=== PATIENT | female | born 1950 | race Caucasian/White ===

== ENCOUNTER → 2018-04-13 13:45 | Outpatient (CLI) | payer MEDICARE, SELFPAY ==
[2018-04-13 16:03] LABS: ALB/GLOB Ratio 0.9 RATIO (0.9-2.4); AST(SGOT) 19 U/L (15-37); Alanine Aminotransfer ALT/SGPT 22 U/L (13-56); Albumin, Serum 3.5 g/dL (3.2-5.0); Alkaline Phosphatase 92 U/L (45-117); Anion Gap 8 (5-15); BUN 13 mg/dL (7-18); BUN/Creat Ratio 15.5 RATIO (10-20); Calcium,Total 8.9 mg/dL (8.5-10.1); Chloride 106 mmol/L (98-107); Creatinine, Serum 0.84 mg/dL (0.55-1.02); EST Glomerular Filtration Rate 72 mL/min (>60); Est Glom Filt Rate - Afr Amer 87 mL/min (>60); Globulin 3.9 g/dL (2.2-4.2); Glucose 87 mg/dL (74-106); Potassium 3.7 mmol/L (3.5-5.1); Protein, Total 7.4 g/dL (6.4-8.2); Sodium Level 143 mmol/L (136-145); Thyroid Stim Hormone (TSH) 1.12 uIU/mL (0.358-3.74)
[2018-04-14 08:58] LABS: Vitamin D,25 Hydroxy 24.7 ng/mL (29.95-100.01)
== END ==
PROVIDERS: Family Provider Family Medicine; PCP Family Medicine; Visit Provider Internal Medicine Endocrinology, Diabetes & Metabolism
DX: E03.8 Other specified hypothyroidism (principal); E55.9 Vitamin D deficiency, unspecified
CPT/HCPCS: 36415; 80053; 82306; 84443

== ENCOUNTER → 2018-10-22 14:26 | Outpatient (CLI) | payer MEDICARE, SELFPAY ==
[2018-10-22 15:47] LABS: Vitamin D,25 Hydroxy 27.5 ng/mL (29.95-100.01)
[2018-10-22 15:49] LABS: ALB/GLOB Ratio 0.9 RATIO (0.9-2.4); AST(SGOT) 15 U/L (15-37); Alanine Aminotransfer ALT/SGPT 18 U/L (13-56); Albumin, Serum 3.6 g/dL (3.2-5.0); Alkaline Phosphatase 94 U/L (45-117); Anion Gap 5 (5-15); BUN 19 mg/dL (7-18); BUN/Creat Ratio 16.7 RATIO (10-20); Calcium,Total 9.1 mg/dL (8.5-10.1); Chloride 105 mmol/L (98-107); Creatinine, Serum 1.14 mg/dL (0.55-1.02); EST Glomerular Filtration Rate 51 mL/min (>60); Est Glom Filt Rate - Afr Amer 61 mL/min (>60); Globulin 4.1 g/dL (2.2-4.2); Glucose 90 mg/dL (74-106); Potassium 3.8 mmol/L (3.5-5.1); Protein, Total 7.7 g/dL (6.4-8.2); Sodium Level 140 mmol/L (136-145); Thyroid Stim Hormone (TSH) 2.31 uIU/mL (0.358-3.74)
== END ==
PROVIDERS: Family Provider Family Medicine; PCP Family Medicine; Referring Provider Internal Medicine Endocrinology, Diabetes & Metabolism; Visit Provider Internal Medicine Endocrinology, Diabetes & Metabolism
DX: E03.8 Other specified hypothyroidism (principal); E55.9 Vitamin D deficiency, unspecified
CPT/HCPCS: 36415; 80053; 82306; 84443

== ENCOUNTER → 2018-11-25 11:26 | Outpatient (CLI) | payer MEDICARE, SELFPAY ==
[2018-11-25 14:17] LABS: Anion Gap 11 (5-15); BUN 20 mg/dL (7-18); BUN/Creat Ratio 21.7 RATIO (10-20); Calcium,Total 9.1 mg/dL (8.5-10.1); Chloride 107 mmol/L (98-107); Creatinine, Serum 0.92 mg/dL (0.55-1.02); EST Glomerular Filtration Rate 65 mL/min (>60); Est Glom Filt Rate - Afr Amer 78 mL/min (>60); Glucose 121 mg/dL (74-106); Potassium 3.7 mmol/L (3.5-5.1); Sodium Level 143 mmol/L (136-145)
== END ==
PROVIDERS: Family Provider Family Medicine; PCP Family Medicine; Referring Provider Internal Medicine Endocrinology, Diabetes & Metabolism; Visit Provider Internal Medicine Endocrinology, Diabetes & Metabolism
DX: E03.8 Other specified hypothyroidism (principal); E55.9 Vitamin D deficiency, unspecified
CPT/HCPCS: 36415; 80048

== ENCOUNTER → 2018-12-13 13:55 | Outpatient (CLI) | payer MEDICARE, SELFPAY | PROVIDERS: Family Provider Family Medicine; PCP Family Medicine; Referring Provider Family Medicine; Visit Provider Family Medicine | DX: M54.5 Low back pain (principal) | CPT/HCPCS: 87086; 87088 ==

== ENCOUNTER → 2019-04-19 08:17 | Outpatient (CLI) | payer MEDICARE, SELFPAY ==
[2019-04-19 10:26] LABS: Vitamin D,25 Hydroxy 33.2 ng/mL (29.95-100.01)
[2019-04-19 10:30] LABS: AST(SGOT) 15 U/L (15-37); Alanine Aminotransfer ALT/SGPT 22 U/L (13-56); Albumin, Serum 3.6 g/dL (3.2-5.0); Alkaline Phosphatase 75 U/L (45-117); Anion Gap 8 (5-15); BUN 20 mg/dL (7-18); BUN/Creat Ratio 21.8 RATIO (10-20); Calcium,Total 8.9 mg/dL (8.5-10.1); Chloride 108 mmol/L (98-107); Creatinine, Serum 0.92 mg/dL (0.55-1.02); EST Glomerular Filtration Rate 65 mL/min (>60); Est Glom Filt Rate - Afr Amer 78 mL/min (>60); Globulin 3.6 g/dL (2.2-4.2); Glucose 110 mg/dL (74-106); Potassium 3.8 mmol/L (3.5-5.1); Protein, Total 7.2 g/dL (6.4-8.2); Sodium Level 142 mmol/L (136-145)
== END ==
PROVIDERS: Family Provider Family Medicine; PCP Family Medicine; Referring Provider Internal Medicine Endocrinology, Diabetes & Metabolism; Visit Provider Internal Medicine Endocrinology, Diabetes & Metabolism
DX: E03.8 Other specified hypothyroidism (principal); E55.9 Vitamin D deficiency, unspecified
CPT/HCPCS: 36415; 80053; 82306; 84443

== ENCOUNTER → 2019-10-21 11:17 | Outpatient (CLI) | payer MEDICARE, SELFPAY ==
[2019-10-21 14:30] LABS: ALB/GLOB Ratio 0.9 RATIO (0.9-2.4); AST(SGOT) 16 U/L (15-37); Alanine Aminotransfer ALT/SGPT 25 U/L (13-56); Albumin, Serum 3.5 g/dL (3.2-5.0); Alkaline Phosphatase 79 U/L (45-117); Anion Gap 4 (5-15); BUN 19 mg/dL (7-18); BUN/Creat Ratio 20.7 RATIO (10-20); Calcium,Total 9.3 mg/dL (8.5-10.1); Chloride 107 mmol/L (98-107); Creatinine, Serum 0.92 mg/dL (0.55-1.02); EST Glomerular Filtration Rate 65 mL/min (>60); Est Glom Filt Rate - Afr Amer 78 mL/min (>60); Globulin 3.8 g/dL (2.2-4.2); Glucose 80 mg/dL (74-106); Potassium 3.9 mmol/L (3.5-5.1); Protein, Total 7.3 g/dL (6.4-8.2); Sodium Level 142 mmol/L (136-145); Thyroid Stim Hormone (TSH) 4.17 uIU/mL (0.358-3.74)
== END ==
LOC: MTLAB 11:19
PROVIDERS: PCP Family Medicine; Referring Provider Internal Medicine Endocrinology, Diabetes & Metabolism; Visit Provider Internal Medicine Endocrinology, Diabetes & Metabolism
DX: E03.8 Other specified hypothyroidism (principal)
CPT/HCPCS: 36415; 80053; 84443

== ENCOUNTER → 2020-04-19 | Outpatient (CLI) | payer MEDICARE, SELFPAY ==
[2020-04-19 10:18] LABS: ALB/GLOB Ratio 1.1 RATIO (0.9-2.4); AST(SGOT) 15 U/L (15-37); Alanine Aminotransfer ALT/SGPT 22 U/L (13-56); Albumin, Serum 3.7 g/dL (3.2-5.0); Alkaline Phosphatase 84 U/L (45-117); Anion Gap 3 (5-15); BUN 13 mg/dL (7-18); BUN/Creat Ratio 14.2 RATIO (10-20); Calcium,Total 8.9 mg/dL (8.5-10.1); Chloride 106 mmol/L (98-107); Creatinine, Serum 0.92 mg/dL (0.55-1.02); EST Glomerular Filtration Rate 65 mL/min (>60); Est Glom Filt Rate - Afr Amer 78 mL/min (>60); Globulin 3.5 g/dL (2.2-4.2); Glucose 95 mg/dL (74-106); Potassium 4.2 mmol/L (3.5-5.1); Protein, Total 7.2 g/dL (6.4-8.2); Sodium Level 139 mmol/L (136-145); Thyroid Stim Hormone (TSH) 1.89 uIU/mL (0.358-3.74)
== END | disposition home or self-care (01) ==
LOC: MTLAB 08:43
PROVIDERS: PCP Family Medicine; Referring Provider Internal Medicine Endocrinology, Diabetes & Metabolism; Visit Provider Internal Medicine Endocrinology, Diabetes & Metabolism
DX: E03.8 Other specified hypothyroidism (principal)
CPT/HCPCS: 36415; 80053; 84443

== ENCOUNTER → 2020-11-12 08:34 | Outpatient (CLI) | payer MEDICARE, SELFPAY ==
[2020-11-12 10:07] LABS: Vitamin D,25 Hydroxy 36.4 ng/mL
[2020-11-12 10:36] LABS: ALB/GLOB Ratio 1.1 RATIO (0.9-2.4); AST(SGOT) 18 U/L (15-37); Alanine Aminotransfer ALT/SGPT 22 U/L (13-56); Albumin, Serum 3.8 g/dL (3.2-5.0); Alkaline Phosphatase 85 U/L (45-117); Anion Gap 7 (5-15); BUN 18 mg/dL (7-18); BUN/Creat Ratio 18.5 RATIO (10-20); Calcium,Total 9.7 mg/dL (8.5-10.1); Chloride 107 mmol/L (98-107); Creatinine, Serum 0.97 mg/dL (0.55-1.02); EST Glomerular Filtration Rate 60 mL/min (>60); Est Glom Filt Rate - Afr Amer 73 mL/min (>60); Globulin 3.6 g/dL (2.2-4.2); Glucose 99 mg/dL (74-106); Potassium 3.9 mmol/L (3.5-5.1); Protein, Total 7.4 g/dL (6.4-8.2); Sodium Level 139 mmol/L (136-145); Thyroid Stim Hormone (TSH) 2.48 uIU/mL (0.358-3.74)
== END ==
PROVIDERS: PCP Family Medicine; Referring Provider Internal Medicine Endocrinology, Diabetes & Metabolism; Visit Provider Internal Medicine Endocrinology, Diabetes & Metabolism
DX: E03.8 Other specified hypothyroidism (principal); E55.9 Vitamin D deficiency, unspecified
CPT/HCPCS: 36415; 80053; 82306; 84443

== ENCOUNTER 2021-11-25 13:50 | Outpatient (CLI) | payer MEDICARE, SELFPAY ==
[2021-11-25 16:18] LABS: Free T3 2.6 pg/mL (2.18-3.98); T4 Free Direct 1.22 ng/dL (0.76-1.46); Thyroid Stim Hormone (TSH) 1.32 uIU/mL (0.358-3.74)
== END 2021-11-25 23:59 | disposition home or self-care (01) ==
PROVIDERS: PCP Family Medicine; Referring Provider Family Medicine; Visit Provider Family Medicine
DX: E03.9 Hypothyroidism, unspecified (principal)
CPT/HCPCS: 36415; 84439; 84443; 84481

== ENCOUNTER → 2022-09-04 | Outpatient (CLI) | payer MEDICARE, SELFPAY ==
[2022-09-04 17:40] LABS: Hematocrit 40.9 % (37-47); Hemoglobin 13.5 g/dL (12.0-15.0); Mean Corpuscular Hgb 30.3 pg (27.0-32.0); Mean Corpuscular Volume 91.7 fL (81-99); Mean Platelet Vol. 9.3 fl (6.2-12.0); Platelet Count 239 K/mm3 (150-450); RBC Distribution Width CV 12.7 % (11.6-14.6); RBC Distribution Width SD 43.1 fl (35.1-43.9); Red Blood Count 4.46 M/mm3 (4.2-5.4); White Blood Count 5.3 K/mm3 (4.4-11.0)
[2022-09-04 18:04] LABS: Anion Gap 7 (5-15); BUN 17 mg/dL (7-18); BUN/Creat Ratio 22.3 RATIO (10-20); Calcium,Total 9.4 mg/dL (8.5-10.1); Chloride 105 mmol/L (98-107); Creatinine, Serum 0.76 mg/dL (0.55-1.02); EST Glomerular Filtration Rate 80 mL/min (>60); Est Glom Filt Rate - Afr Amer 96 mL/min (>60); Free T3 2.6 pg/mL (2.18-3.98); Glucose 104 mg/dL (74-106); Sodium Level 141 mmol/L (136-145); T4 Free Direct 1.13 ng/dL (0.76-1.46); Thyroid Stim Hormone (TSH) 1.06 uIU/mL (0.358-3.74)
== END | disposition home or self-care (01) ==
LOC: MTLAB 15:03
PROVIDERS: PCP Family Medicine; Referring Provider Family Medicine; Visit Provider Family Medicine
DX: I10 Essential (primary) hypertension (principal); E03.9 Hypothyroidism, unspecified
CPT/HCPCS: 36415; 80048; 84439; 84443; 84481; 85027

== ENCOUNTER → 2023-03-10 | Outpatient (CLI) | payer MEDICARE, SELFPAY ==
[2023-03-10 12:47] LABS: T3 Total - Triiodothyronine 0.99 ng/mL (0.6-1.81)
[2023-03-10 12:48] LABS: Anion Gap 1 (5-15); BUN 21 mg/dL (7-18); BUN/Creat Ratio 26.2 RATIO (10-20); Calcium,Total 9.4 mg/dL (8.5-10.1); Chloride 108 mmol/L (98-107); Cholesterol 250 mg/dL (200); EST Glomerular Filtration Rate 75 mL/min (>60); Est Glom Filt Rate - Afr Amer 90 mL/min (>60); Glucose 99 mg/dL (74-106); High Density Lipoprotein 61 mg/dL; Potassium 3.8 mmol/L (3.5-5.1); Sodium Level 141 mmol/L (136-145); T4 Free Direct 1.09 ng/dL (0.76-1.46); Thyroid Stim Hormone (TSH) 5.57 uIU/mL (0.358-3.74); Triglycerides 94 mg/dL; Very Low Density Lipoprotein 19 mg/dL (5-40)
[2023-03-11 14:45] LABS: Free T3 2.3 pg/mL (2.18-3.98)
== END | disposition home or self-care (01) ==
LOC: MTLAB 10:13
PROVIDERS: PCP Family Medicine; Referring Provider Family Medicine; Visit Provider Family Medicine
DX: I10 Essential (primary) hypertension (principal); E03.9 Hypothyroidism, unspecified
CPT/HCPCS: 36415; 80048; 80061; 84439; 84443; 84480; 84481

== ENCOUNTER → 2023-09-08 | Outpatient (CLI) | payer MEDICARE, SELFPAY ==
[2023-09-08 12:48] LABS: ALB/GLOB Ratio 1.1 RATIO (0.9-2.4); AST(SGOT) 20 U/L (15-37); Alanine Aminotransfer ALT/SGPT 28 U/L (13-56); Albumin, Serum 3.7 g/dL (3.2-5.0); Alkaline Phosphatase 67 U/L (45-117); Anion Gap 2 (5-15); BUN 19 mg/dL (7-18); BUN/Creat Ratio 22.3 RATIO (10-20); Calcium,Total 9.3 mg/dL (8.5-10.1); Chloride 106 mmol/L (98-107); Cholesterol 181 mg/dL (200); Creatinine, Serum 0.85 mg/dL (0.55-1.02); EST Glomerular Filtration Rate 70 mL/min (>60); Est Glom Filt Rate - Afr Amer 84 mL/min (>60); Free T3 2.1 pg/mL (2.18-3.98); Globulin 3.4 g/dL (2.2-4.2); Glucose 90 mg/dL (74-106); High Density Lipoprotein 56 mg/dL; Potassium 3.6 mmol/L (3.5-5.1); Protein, Total 7.1 g/dL (6.4-8.2); Sodium Level 139 mmol/L (136-145); T4 Free Direct 1.16 ng/dL (0.76-1.46); Thyroid Stim Hormone (TSH) 1.38 uIU/mL (0.358-3.74); Triglycerides 131 mg/dL; Very Low Density Lipoprotein 26 mg/dL (5-40)
== END | disposition home or self-care (01) ==
LOC: MTLAB 10:51
PROVIDERS: PCP Family Medicine; Referring Provider Family Medicine; Visit Provider Family Medicine
DX: E03.9 Hypothyroidism, unspecified (principal); E78.5 Hyperlipidemia, unspecified
CPT/HCPCS: 36415; 80053; 80061; 84439; 84443; 84481

== ENCOUNTER 2023-12-23 09:00 | Outpatient (RCR) | payer MEDICARE, SELFPAY ==
--- NOTE | 2023-11-23 20:13 | HP.PTEVAL ---
Patient's Visit Information Visit Information Visit Information: JARRET SHERIFF is a 73 year old F referred to Physical Therapy by AARON DEE with a diagnosis of SPONDYLOLISTHESIS OF LUMBAR SPINE. Date of Evaluation: 11/20/23 Physical Therapist: Janette Esposito PT, Cert MDT Visit Plan Frequency: 2x /Week Duration: 4-6 Weeks Plan: Neutral Spine Core Stability Exercises and Kathy LE Hip Flexor, Hamstring and Calf Stretching to help reduce stress to the Lumbar Spine with all Daily Activities. Kathy LE Strengthening. Instruction in Proper Posture Control, Body Mechanics, and Appropriate Activity Modifications. HEP Instruction. Subjective Subjective: Work/Leisure: RETIRED. Disability: NO Present symptoms: KATHY LOW BACK PAIN THAT SOMETIMES GOES INTO HIPS. RARE INTERMITTENT L CALF TINGLING. SOMETIMES CAN NOT MOVE LEGS (MORNING). Present since: LAST SUMMER AND ESPECIALLY SINCE JUL 2023. Pain Scale: WORST 11/10, LEAST 3/10 Currently: 3/10 Is it getting better, worse or staying the same: STAYING THE SAME Commenced as a result of: NO APPARENT REASON. Symptoms at onset: STIFFNESS IN BACK Worse: MORNING, PICKING UP SOMETHING OFF THE FLOOR, STANDING, WALKING, WALKING THE DOG - WHEN THE DOG PULLS, BEING ON FEET, LIFTING THINGS LIKE A CROCK POT. Better: SIT DOWN, NSAIDS. Has been prescribed Meloxicam but patient reports it doesn't help as much as the NSAIDS. Disturbed sleep: YES - TURNING OVER Previous history/Previous treatment: EPISODIC LOW BACK PAIN FOR ABOUT 40 YEARS - SELF TREATED. Treatment this episode: MELOXICAM, PREDNISONE - FINISHING CURRENTLY - I FEEL BETTER. Coughing/sneezing/straining: POSITIVE FOR INCREASED PAIN. Gait: TIME AND DISTANCE LIMITED. NO FALLS. NO AD'S. CAN GO UP AND DOWN STEPS NORMALLY UNLESS TRYING TO CARRY ANYTHING LIKE LAUNDRY. Bowel or Bladder Dysfunction: NORMAL Accidents: NO Unexplained weight loss: NO Imaging: LUMBAR X-RAYS AT [facility] RECENTLY - SLIPPED DISC L45 AND NARROWING THE WHOLE WAY UP PER PATIENT REPORT. PMH/Recent major surgery: KATHY TKR'S. HIGH CHOLESTEROL. Objective Objective: Sitting/Standing Posture: R ILIAC CREST SLIGHTLY HIGHER THAN L AND R SHLD LEVEL LOWER THAN L. ANTERIOR PELVIC TILT. NO RELEVANT LATERAL SHIFT Active Correction of posture: BETTER Other Observations: INDEP GAIT INTO PT WITH INCREASED TRUNK FLEXION AND QUICK STEPS. Sensory deficit: KATHY LE LIGHT TOUCH SENSATION GROSSLY INTACT AND SYMMETRICAL ROM deficit: TIGHT KATHY HIP FLEXORS, HS AND MILD CALF TIGHTNESS. Motor deficit: KATHY HIPS 4-/5, KNEES 5/5, ANKLES 5/5. Dural Signs: NEGATIVE KATHY LE'S. Lumbar mvmt loss: flex - NIL ext - MOD R SG - DONNA L SG - DONNA PATIENT C/O INCREASED LBP WITH LUMBAR ROM TESTING INTO KATHY SG'ING BUT NOT FLEX AND EXT. Core strength: POOR Palpation: INCREASED MUSCLE TONE KATHY LUMBAR PARASPINALS AND LOWER THORACIC REGION L >R. TENDER L345 REGION. Balance/Special Test Scores Oswestry Low Back Score: 21 Goals Goal 1:: DECREASE OF BACK AND KATHY LE SX'S BY AT LEAST 25% TO EASE ADL'S. Goal Time Frame: 4-6 Weeks Goal 2:: IMPROVE BACK OSWESTRY SCORE BY AT LEAST 5 POINTS TO SHOW IMPROVED FUNCTION Goal Time Frame: 4-6 Weeks Goal 3:: PATIENT WILL HAVE INCREASED MUSCLE STRENGTH BY AT LEAST 1/2 GRADE OF ALL INVOLVED MUSCULATURE. Goal Time Frame: 4-6 Weeks Goal 4:: PATIENT WILL HAVE IMPROVE PAINFREE LUMBAR MOBILITY TO EASE ADL'S. Goal Time Frame: 4-6 Weeks Goal 5:: NORMALIZE GAIT Goal Time Frame: 4-6 Weeks Goal 6:: PATIENT WILL BE INDEP WITH A HEP FOR CONTINUED IMPROVEMENT ONCE FORMAL PHYSICAL THERPAY CONCLUDES. Goal Time Frame: 6-8 Weeks Rehabilitation Potential Physical Therapy Diagnosis: THIS PATIENT PRESENTS TO PT WITH C/O LOW BACK AND KATHY HIP PAIN. SHE HAS CORE AND KATHY HIP WEAKNESS, BACK AND KATHY LE STIFFNESS AND ABNORMAL GAIT PATTERN. Rehabilitation Potential: Fair Anticipated Interventions Patient/Client Instruction: Educate patient on: Condition, Plan of Care and Risk Factors For the Purpose of:: To improve self management Therapeutic Exercise to Include: Strength training, Body mechanics, Postural training, Neuromotor development, In an aquatic setting and Dynamic Lumbar Stabilization For the Purpose of:: To decrease pain, To increase ROM, To improve muscle performance and motor function, To increase tolerance to activity/condition/position, To improve ability of physical actions for home/community/work/leisure and To improve gait and locomotor functions Manual Therapy Techniques to Include: Soft tissue mobilization For the Purpose of:: To decrease pain and To improve nutrient delivery to tissue Cryotherapy (ice pack, ice massage): Yes Thermo therapy (hot pack): Yes Ultrasound (thermal/non thermal): Yes For the Purpose of:: To decrease pain, To decrease swelling/inflammation and To improve nutrient delivery to tissue Text: Thank you for the opportunity to evaluate your patient. For Medicare and Medicare HMO plans, please review the plan of care and approve it. It will need to be FAXED BACK to us at [phone] for Medicare purposes. For Medicare only, by signing this I certify the plan of care. Please let me know if there are questions or concerns regarding this plan of care. Physician Signature: Date:
== END 2023-12-23 19:00 | disposition home or self-care (01) ==
LOC: PT 09:00
PROVIDERS: PCP Family Medicine
DX: M43.16 Spondylolisthesis, lumbar region (principal)
CPT/HCPCS: 97035; 97162; 97530

== ENCOUNTER → 2024-03-09 | Outpatient (CLI) | payer MEDICARE, SELFPAY ==
[2024-03-09 11:20] LABS: AST(SGOT) 23 U/L (15-37); Alanine Aminotransfer ALT/SGPT 25 U/L (13-56); Albumin, Serum 3.7 g/dL (3.2-5.0); Alkaline Phosphatase 79 U/L (45-117); Anion Gap 6 (5-15); BUN 19 mg/dL (7-18); BUN/Creat Ratio 24.2 RATIO (10-20); Calcium,Total 9.1 mg/dL (8.5-10.1); Chloride 108 mmol/L (98-107); Cholesterol 191 mg/dL (200); Creatinine, Serum 0.78 mg/dL (0.55-1.02); EST Glomerular Filtration Rate 77 mL/min (>60); Est Glom Filt Rate - Afr Amer 93 mL/min (>60); Free T3 2.6 pg/mL (2.18-3.98); Globulin 3.8 g/dL (2.2-4.2); Glucose 100 mg/dL (74-106); High Density Lipoprotein 57 mg/dL; Potassium 3.8 mmol/L (3.5-5.1); Protein, Total 7.5 g/dL (6.4-8.2); Sodium Level 141 mmol/L (136-145); T4 Free Direct 1.12 ng/dL (0.76-1.46); Thyroid Stim Hormone (TSH) 3.22 uIU/mL (0.358-3.74); Triglycerides 171 mg/dL; Very Low Density Lipoprotein 34 mg/dL (5-40)
== END | disposition home or self-care (01) ==
PROVIDERS: PCP Family Medicine; Referring Provider Family Medicine; Visit Provider Family Medicine
DX: E03.9 Hypothyroidism, unspecified (principal)
CPT/HCPCS: 36415; 80053; 80061; 84439; 84443; 84481

== ENCOUNTER → 2024-09-14 | Outpatient (CLI) | payer MEDICARE, SELFPAY ==
[2024-09-14 18:36] LABS: Anion Gap 6 (5-15); BUN 19 mg/dL (7-18); BUN/Creat Ratio 21.8 RATIO (10-20); Chloride 106 mmol/L (98-107); Cholesterol 194 mg/dL (200); Creatinine, Serum 0.87 mg/dL (0.55-1.02); EST Glomerular Filtration Rate 68 mL/min (>60); Est Glom Filt Rate - Afr Amer 82 mL/min (>60); Free T3 2.2 pg/mL (2.18-3.98); Glucose 91 mg/dL (74-106); High Density Lipoprotein 60 mg/dL; Sodium Level 139 mmol/L (136-145); Triglycerides 159 mg/dL; Very Low Density Lipoprotein 32 mg/dL (5-40)
== END | disposition home or self-care (01) ==
LOC: MFPLAB 14:16
PROVIDERS: PCP Family Medicine; Referring Provider Family Medicine; Visit Provider Family Medicine
DX: E03.9 Hypothyroidism, unspecified (principal); E78.5 Hyperlipidemia, unspecified
CPT/HCPCS: 36415; 80048; 80061; 84439; 84443; 84481

== ENCOUNTER → 2025-03-20 | Outpatient (CLI) | payer MEDICARE, SELFPAY ==
[2025-03-20 14:04] LABS: ALB/GLOB Ratio 1.4 RATIO (0.9-2.4); AST(SGOT) 26 U/L (<=31); Alanine Aminotransfer ALT/SGPT 17 U/L (<=34); Albumin, Serum 4.1 g/dL (3.4-4.8); Alkaline Phosphatase 65 U/L (35-104); Anion Gap 12 (5-15); BUN 22 mg/dL (4-19); BUN/Creat Ratio 21.5 RATIO (10-20); Calcium,Total 9.4 mg/dL (7.6-11.0); Carbon Dioxide 24.3 mmol/L (21.0-32.0); Chloride 101 mmol/L (98-108); Cholesterol 223 mg/dL (<=200); Creatinine, Serum 1.04 mg/dL (0.70-1.20); EST Glomerular Filtration Rate 57 (>60); Free T3 2.6 pg/mL (2.18-3.98); Globulin 2.9 g/dL (2.2-4.2); Glucose 98 mg/dL (70-99); High Density Lipoprotein 53 mg/dL; Low Density Lipoprotein Calc. 127 mg/dL; Potassium 4.2 mmol/L (3.3-5.1); Sodium Level 138 mmol/L (133-145); Total Bilirubin 0.38 mg/dL (0.00-1.30); Triglycerides 214 mg/dL; Very Low Density Lipoprotein 43 mg/dL (5-40); cholesterol:hdl ratio screen 4.22
== END | disposition home or self-care (01) ==
LOC: MFPLAB 10:32
PROVIDERS: PCP Family Medicine; Visit Provider Family Medicine
DX: E03.9 Hypothyroidism, unspecified (principal); E78.5 Hyperlipidemia, unspecified
CPT/HCPCS: 36415; 80053; 80061; 84439; 84443; 84481

== ENCOUNTER → 2025-04-07 | Outpatient (CLI) | payer MEDICARE, SELFPAY ==
--- NOTE | 2025-04-07 14:38 | BI_ITS ---
EXAM: SCRN MAMM (CAD)W/SISI BILAT DATE: 04/07/2025 CLINICAL HISTORY: F, Age 74 y/o , ANNUAL SCREENING TECHNIQUE: SCRN MAMM (CAD)W/SISI BILAT COMPARISON: None available FINDINGS: TISSUE DENSITY: The breasts are heterogeneously dense, which may obscure small masses. Bilateral Breast Mammographic Findings: Right breast: There is questionable architectural distortion in the slightly outer right breast mid depth on the right CC view. Left breast: No suspicious masses, calcifications or other abnormalities are identified. BI/SCRN MAMM (CAD)W/SISI BILAT IMPRESSION: Additional diagnostic imaging is recommended of the right breast with diagnosti c right breast mammogram and possible ultrasound. No mammographic evidence of malignancy in the left breast OVERALL FINAL ASSESSMENT BI-RADS 0: INCOMPLETE - NEED ADDITIONAL IMAGING EVALUATION. RECOMMENDATION: Additional Views obtained/call backs A letter with findings and recommendations will be mailed to the patient. Reading Location: [id number]
== END | disposition home or self-care (01) ==
LOC: OPBI 14:35
PROVIDERS: PCP Family Medicine; Referring Provider Family Medicine; Visit Provider Family Medicine
DX: Z12.31 Encounter for screening mammogram for malignant neoplasm of breast (principal)
CPT/HCPCS: 77063; 77067

== ENCOUNTER → 2025-04-21 | Outpatient (CLI) | payer MEDICARE, SELFPAY ==
--- NOTE | 2025-04-21 12:57 | US_ITS ---
EXAM: DIAG MAMM W/CAD, UNILAT; RT BRST UNILAT SISI ADD-ON; BREAST LIMITED UNILATERAL 04/21/2025 CLINICAL HISTORY: 74-year-old female presents for follow-up of the right breast findings seen on examination of 04/07/2025. No family history of breast cancer. TECHNIQUE: DIAG MAMM W/CAD, UNILAT; RT BRST UNILAT SISI ADD-ON; BREAST LIMITED UNILATERAL. COMPARISON: Prior exam(s) dated 04/07/2025. FINDINGS: MAMMOGRAM: TISSUE DENSITY: The breasts are heterogeneously dense, which may obscure small masses. Unilateral Right Breast Mammographic Findings: 1. Follow-up examination performed for the questionable architectural distortions in the right breast seen on examination of 04/07/2025. On the present examination, there is an focal asymmetry in the upper-outer right breast at middle depth. ULTRASOUND: 1. There is no definite sonographic correlate. 2. There is an incidental cyst cluster in the right breast at 8 o'clock 4 cm from the nipple measuring 1.0 x 0.7 x 0.3 cm. Also, there is entrapped fa/fat lobule t at 10 o'clock 5 cm from the nipple. US/Breast Limited Unilateral IMPRESSION: 1. The focal asymmetry in the upper-outer right breast is probably benign. Re commended short interval diagnostic mammogram in six-months for further evaluation. 2. The cyst cluster in the right breast at 8 o'clock is probably benign. Daniel mmend short interval diagnostic ultrasound in six-months for further evaluation. OVERALL FINAL ASSESSMENT BI-RADS 3: PROBABLY BENIGN. RECOMMENDATION: 6 Month Follow-up A letter with findings and recommendations will be mailed to the patient. Reading Location: [id number]
--- NOTE | 2025-04-21 13:06 | BI_ITS ---
EXAM: DIAG MAMM W/CAD, UNILAT; RT BRST UNILAT SISI ADD-ON; BREAST LIMITED UNILATERAL 04/21/2025 CLINICAL HISTORY: 74-year-old female presents for follow-up of the right breast findings seen on examination of 04/07/2025. No family history of breast cancer. TECHNIQUE: DIAG MAMM W/CAD, UNILAT; RT BRST UNILAT SISI ADD-ON; BREAST LIMITED UNILATERAL. COMPARISON: Prior exam(s) dated 04/07/2025. FINDINGS: MAMMOGRAM: TISSUE DENSITY: The breasts are heterogeneously dense, which may obscure small masses. Unilateral Right Breast Mammographic Findings: 1. Follow-up examination performed for the questionable architectural distortions in the right breast seen on examination of 04/07/2025. On the present examination, there is an focal asymmetry in the upper-outer right breast at middle depth. ULTRASOUND: 1. There is no definite sonographic correlate. 2. There is an incidental cyst cluster in the right breast at 8 o'clock 4 cm from the nipple measuring 1.0 x 0.7 x 0.3 cm. Also, there is entrapped fa/fat lobule t at 10 o'clock 5 cm from the nipple. BI/Rt Brst Unilat Sisi Add-On IMPRESSION: 1. The focal asymmetry in the upper-outer right breast is probably benign. Re commended short interval diagnostic mammogram in six-months for further evaluation. 2. The cyst cluster in the right breast at 8 o'clock is probably benign. Daniel mmend short interval diagnostic ultrasound in six-months for further evaluation. OVERALL FINAL ASSESSMENT BI-RADS 3: PROBABLY BENIGN. RECOMMENDATION: 6 Month Follow-up A letter with findings and recommendations will be mailed to the patient. Reading Location: [id number]
== END | disposition home or self-care (01) ==
LOC: OPBI 12:47
PROVIDERS: PCP Family Medicine; Referring Provider Family Medicine; Visit Provider Family Medicine
DX: N60.01 Solitary cyst of right breast (principal); R92.30 Dense breasts, unspecified
CPT/HCPCS: 76642; 77061; 77065; G0279

== ENCOUNTER 2025-08-09 06:04 | Day surgery (SDC) | payer MEDICARE, SELFPAY ==
[2025-08-09] VITALS (7 sets, daily range): BP systolic 112–154; BP diastolic 54–89; PULSE 72–97; RESP 16; TEMP 36.2–36.3; O2SAT 99–100; BMI 30.9
--- OUTSIDE RECORDS SUMMARY | 2025-08-09 06:10 | XMS RPT_ITS | CCD ---
Author Organization [place] Inform ion [facility] Care Team Providers Care Client Service Executive Name Role Phone Jamila NEWBY, Dr. Nichols Primary Care Provider Jamila NEWBY, Dr. Nichols Attending Provider Jamila NEWBY, Dr. Nichols Referring Provider [phone] Simone Marino Referring Unavailable Marino, Simone Primary Care Unavailable Marino, Simone Attending Unavailable Marino, Simone Referring Unavailable Marino, Simone Primary Care Unavailable Marino, Simone Attending Unavailable Marino, Simone Primary Care Unavailable RobotLeonie valles Attending Unavailable Marino, Simone Referring Unavailable Marino, Simone Primary Care Unavailable Marino, Simone Attending Unavailable Marino, Simone Referring Unavailable Marino, Simone Primary Care Unavailable Marino, Simone Attending Unavailable Allergies Allergy Classification Reported Allergen(s) Allergy Type Date of Onset Reaction(s) Facility (5 sources) nickel Drug Allergy 05-24-2021 ears swell [facility] (5 sources) Penicillins Allergy to substance 05-24-2021 [facility] (1 source) nickel Drug Allergy 08-07-2025 [facility] Repository (1 source) Penicillins Drug allergy (disorder) 08-07-2025 [facility] Repository Medications Current Medications Medication Drug Class(es) Dates Sig (Normalized) Sig (Original) allergy injections (5 sources) Start: 02-12-2021 allergy injections Active IM every 2 weeks 0 February 12, 2021 12:00am Start: 02-12-2021 allergy inject ions Active IM every 2 weeks February 11, 2021 11:00pm Start: 02-12-2021 allergy inject ions Active IM every 2 weeks February 12, 2021 12:00am biotin 1 mg oral capsule (5 sources) Start: 02-12-2021 take 1 capsule by mouth once daily Biotin 1 mg capsule Active 1 mg PO DAILY February 12, 2021 12:00am cholecalciferol 0.05 mg oral capsule (5 sources) Vitamin D Start: 02-12-2021 take 1 capsule by mouth once daily Cholecalciferol (Vitamin D3) 50 mcg (2,000 unit) capsule Active 50 ug PO DAILY February 12, 2021 12:00am cimetidine 200 mg oral tablet (5 sources) Histamine-2 Receptor Antagonist Start: 02-12-2021 take 1 tablet by mouth once daily Cimetidine 200 mg tablet Active 200 mg PO DAILY February 12, 2021 12:00am DULoxetine 60 mg delayed release oral capsule (5 sources) Serotonin and Norepinephrine Reuptake Inhibitor Start: 02-12-2021 take 1 capsule by mouth once daily Duloxetine 60 mg capsule,delayed release(DR/EC) Active 60 mg PO DAILY February 12, 2021 12:00am fexofenadine hydrochloride 180 mg oral tablet (5 sources) Histamine-1 Receptor Antagonist Start: 02-12-2021 take 1 tablet by mouth once daily as needed Fexofenadine (Brigitte Allergy) 180 mg tablet Active 180 mg PO DAILY as needed February 12, 2021 12:00am lactobacillus combination no.8 (Adult Probiotic) (5 sources) Start: 02-12-2021 lactobacillus combination no.8 (Adult Probiotic) Active PO DAILY February 11, 2021 11:00pm Start: 02-12-2021 lactobacillus combination no.8 (Adult Probiotic) Active PO DAILY February 12, 2021 12:00am levothyroxine sodium 0.1 mg oral tablet (10 sources) l-Thyroxine Start: 05-24-2021 take 1 tablet by mouth once daily Levothyroxine 100 mcg tablet Active 100 ug PO DAILY May 24, 2021 12:00am Start: 02-12-2021 End: 05-24-2021 take 1 capsule by mouth once daily Levothyroxine 100 mcg capsule Discontinued 100 ug PO DAILY February 12, 2021 12:00am May 24, 2021 1:46pm Multivitamin preparation (2 sources) Start: 02-12-2021 take 1 tablet by mouth once daily Multivitamin Active 1 TABLET PO DAILY February 11, 2021 11:00pm Start: 02-12-2021 take 1 tablet by steven once daily Multivitamin Active 1 TABLET PO DAILY February 12, 2021 12:00am Multivitamin tablet (3 sources) Start: 02-12-2021 Multivitamin t ablet Active 1 {tbl} PO DAILY February 12, 2021 12:00am [place]-3 Fatty Acids (2 sources) Start: 02-12-2021 take 1000 mg by mouth once daily [place]-3 Fatty Acids Active 1000 MG PO DAILY February 11, 2021 11:00pm "intermittent" per patient Start: 02-12-2021 take 1000 mg by mout h once daily [place]-3 Fatty Acids Active 1000 MG PO DAILY February 12, 2021 12:00am "intermittent" per patient [place]-3 Fatty Acids 1,000 mg capsule (3 sources) Start: 02-12-2021 take 1 capsule by mouth once daily as needed [place]-3 Fatty Acids 1,000 mg capsule Active 1000 mg PO DAILY as needed February 12, 2021 12:00am "intermittent" per patient ubidecarenone 100 mg oral capsule (5 sources) Start: 02-12-2021 Coenzyme Q10 ( Co Q-10) 100 mg capsule Active 100 mg PO DAILY February 12, 2021 12:00am Problems Active Problems Problem Classification Problem Date Documented Da te Episodic/Chronic Osteoarthritis (10 sources) Arthritis; Translations: [Unspecified osteoarthritis, unspecified site] 02-12-2021 Chronic Other upper respiratory disease (5 sources) Seasonal allergy; Translations: [Other seasonal allergic rhinitis] 02-12-2021 Chronic Thyroid disorders (6 sources) Acquired hypothyroidism; Translations: [Hypothyroidism, unspecified] Onset: 03-24-2025 05-27-2021 Chronic Thyroid disorders (5 sources) Disorder of thyroid gland; Translations: [Disorder of thyroid, unspecified] 02-12-2021 Episodic Past or Other Problems Problem Classification Problem Date Documented Da te Episodic/Chronic Nonmalignant breast conditions (1 source) Solitary cyst of right breast; Translations: [Solitary cyst of right breast] Onset: 04-26-2025 Episodic Other screening for suspected conditions (not mental disorders or infectious disease) (1 source) Encounter for screening mammogram for malignant neoplasm of breast; Translations: [Encounter for screening mammogram for malignant neoplasm of breast] Onset: 04-12-2025 Episodic Results Test Name Value Interpretation Reference Range Facility Breast Limited Unilateralon 04-21-2025 Breast Limited Unilateral [facility] Services [address] [place] [address] Breast Limited Unilateral MR#: [id number] Acct: [id number] Name: JARRET SHERIFF Rep #: [id number] : 1950 F 74 From: Amanda Carrasco MD PCP: Dr. Simone Marino MD Status: REG CLI Study: Breast Limited Unilateral Date of Exam: Exam# [id number] Ordering Dr: Simone Marino MD EXAM: DIAG MAMM W/CAD, UNILAT; RT BRST UNILAT MAGED ADD-ON; BREAST LIMITED UNILATERAL 04/21/2025 CLINICAL HISTORY: 74-year-old female presents for follow-up of the right breast findings seen on examination of 04/07/2025. No family history of breast cancer. TECHNIQUE: DIAG MAMM W/CAD, UNILAT; RT BRST UNILAT MAGED ADD-ON; BREAST LIMITED UNILATERAL. COMPARISON: Prior exam(s) dated 04/07/2025. FINDINGS: MAMMOGRAM: TISSUE DENSITY: The breasts are heterogeneously dense, which may obscure small masses. Unilateral Right Breast Mammographic Findings: 1. Follow-up examination performed for the questionable architectural distortions in the right breast seen on examination of 04/07/2025. On the present examination, there is an focal asymmetry in the upper-outer right breast at middle depth. ULTRASOUND: 1. There is no definite sonographic correlate. 2. There is an incidental cyst cluster in the right breast at 8 o'clock 4 cm from the nipple measuring 1.0 x 0.7 x 0.3 cm. Also, there is entrapped fa/fat lobule t at 10 o'clock 5 cm from the nipple. US/Breast Limited Unilateral IMPRESSION: 1. The focal asymmetry in the upper-outer right breast is probably benign. Recommended short interval diagnostic mammogram in six-months for further evaluation. 2. The cyst cluster in the right breast at 8 o'clock is probably benign. Recommend short interval diagnostic ultrasound in six-months for further evaluation. OVERALL FINAL ASSESSMENT BI-RADS 3: PROBABLY BENIGN. RECOMMENDATION: 6 Month Follow-up A letter with findings and recommendations will be mailed to the patient. Reading Location: [facility] CC: Dr. Simone Marino MD [employer]: Signed Normal [facility] Breast imaging reportOrdered By: Amanda Carrasco on 04-21-2025 Study report [facility] Imaging Services [address] [place] [address] DIAG MAMM W/CAD, UNILAT MR#: [id number] Acct: [id number] Name: JARRET SHERIFF Rep #: [id number] : 1950 F 74 From: Theresa Carrasco MD PCP: Dr. Simone Marino MD Status: REG C HANNAH Study:DIAG MAMM W/CAD, UNILAT Date of Exam: 04/21/25 Exam# [id number] Ordering Dr: Simone Marino MD EXAM: DIAG MAMM W/CAD, UNILAT; RT BRST UNILAT MAGED ADD-ON; BREAST LIMITED UNILATERAL 04/21/2025 CLINICAL HISTORY: 74-year-old female presents for follow-up of the right breast findings seen on examination of 04/07/2025. No family history of breast cancer. TECHNIQUE: DIAG MAMM W/CAD, UNILAT; RT BRST UNILAT MAGED ADD-ON; BREAST LIMITED UNILATERAL. COMPARISON: Prior exam(s) dated 04/07/2025. FINDINGS: MAMMOGRAM: TISSUE DENSITY: The breasts are heterogeneously dense, which may obscure small masses. Unilateral Right Breast Mammographic Findings: 1. Follow-up examination performed for the questionable architectural distortions in the right breast seen on examination of 04/07/2025. On the present examination, there is an focal asymmetry in the upper-outer right breast at middle depth. ULTRASOUND: 1. There is no definite sonographic correlate. 2. There is an incidental cyst cluster in the right breast at 8 o'clock 4 cm from the nipple measuring 1.0 x 0.7 x 0.3 cm. Also, there is entrapped fa/fat lobule t at 10 o'clock 5 cm from the nipple. BI/DIAG MAMM W/CAD, UNILAT IMPRESSION: 1. The focal asymmetry in the upper-outer right breast is probably benign. Recommended short interval diagnostic mammogram in six-months for further evaluation. 2. The cyst cluster in the right breast at 8 o'clock is probably benign. Recommend short interval diagnostic ultrasound in six-months for further evaluation. OVERALL FINAL ASSESSMENT BI-RADS 3: PROBABLY BENIGN. RECOMMENDATION: 6 Month Follow-up A letter with findings and recommendations will be mailed to the patient. Reading Location: [id number] CC: Dr. Simone Marino MD ~ [employer]over: Signed [facility] Study report [facility] Imaging Services [address] [place], [place] [address] Rt Brst Unilat Maged Add-On MR#: [id number] Acct: [id number] Name: JARRET SHERIFF Rep #: [id number] : 1950 F 74 From: Theresa Carrasco MD PCP: Dr. Simone Marino MD Status: SHREYA YOUNG Study:Rt Brst Unilat Maged Add-On Date of Exam : 04/21/25 Exam# [id number] Ordering Dr: Simone Marino MD EXAM: DIAG MAMM W/CAD, UNILAT; RT BRST UNILAT MAGED ADD-ON; BREAST LIMITED UNILATERAL 04/21/2025 CLINICAL HISTORY: 74-year-old female presents for follow-up of the right breast findings seen on examination of 04/07/2025. No family history of breast cancer. TECHNIQUE: DIAG MAMM W/CAD, UNILAT; RT BRST UNILAT MAGED ADD-ON; BREAST LIMITED UNILATERAL. COMPARISON: Prior exam(s) dated 04/07/2025. FINDINGS: MAMMOGRAM: TISSUE DENSITY: The breasts are heterogeneously dense, which may obscure small masses. Unilateral Right Breast Mammographic Findings: 1. Follow-up examination performed for the questionable architectural distortions in the right breast seen on examination of 04/07/2025. On the present examination, there is an focal asymmetry in the upper-outer right breast at middle depth. ULTRASOUND: 1. There is no definite sonographic correlate. 2. There is an incidental cyst cluster in the right breast at 8 o'clock 4 cm from the nipple measuring 1.0 x 0.7 x 0.3 cm. Also, there is entrapped fa/fat lobule t at 10 o'clock 5 cm from the nipple. BI/Rt Brst Unilat Maged Add-On IMPRESSION: 1. The focal asymmetry in the upper-outer right breast is probably benign. Recommended short interval diagnostic mammogram in six-months for further evaluation. 2. The cyst cluster in the right breast at 8 o'clock is probably benign. Recommend short interval diagnostic ultrasound in six-months for further evaluation. OVERALL FINAL ASSESSMENT BI-RADS 3: PROBABLY BENIGN. RECOMMENDATION: 6 Month Follow-up A letter with findings and recommendations will be mailed to the patient. Reading Location: [facility] CC: Dr. Simone Marino MD ~ [employer]: Signed [facility] DIAG MAMM W/CAD, UNILATon DIAG MAMM W/CAD, UNILAT [facility] Imaging Services [address] [place], [place] [address] DIAG MAMM W/CAD, UNILAT MR#: [id number] Acct: [id number] Name: JARRET SHERIFF Rep #: [id number] : 1950 F 74 From: Amanda Carrasco MD PCP: Dr. Simone Marino MD Status: [facility] Study: DIAG MAMM W/CAD, UNILAT Date of Exam: 04/21/25 Exam# [id number] Ordering Dr: Simone Marino MD EXAM: DIAG MAMM W/CAD, UNILAT; RT BRST UNILAT MAGED ADD-ON; BREAST LIMITED UNILATERAL 04/21/2025 CLINICAL HISTORY: 74-year-old female presents for follow-up of the right breast findings seen on examination of 04/07/2025. No family history of breast cancer. TECHNIQUE: DIAG MAMM W/CAD, UNILAT; RT BRST UNILAT MAGED ADD-ON; BREAST LIMITED UNILATERAL. COMPARISON: Prior exam(s) dated 04/07/2025. FINDINGS: MAMMOGRAM: TISSUE DENSITY: The breasts are heterogeneously dense, which may obscure small masses. Unilateral Right Breast Mammographic Findings: 1. Follow-up examination performed for the questionable architectural distortions in the right breast seen on examination of 04/07/2025. On the present examination, there is an focal asymmetry in the upper-outer right breast at middle depth. ULTRASOUND: 1. There is no definite sonographic correlate. 2. There is an incidental cyst cluster in the right breast at 8 o'clock 4 cm from the nipple measuring 1.0 x 0.7 x 0.3 cm. Also, there is entrapped fa/fat lobule t at 10 o'clock 5 cm from the nipple. BI/DIAG MAMM W/CAD, UNILAT IMPRESSION: 1. The focal asymmetry in the upper-outer right breast is probably benign. Recommended short interval diagnostic mammogram in six-months for further evaluation. 2. The cyst cluster in the right breast at 8 o'clock is probably benign. Recommend short interval diagnostic ultrasound in six-months for further evaluation. OVERALL FINAL ASSESSMENT BI-RADS 3: PROBABLY BENIGN. RECOMMENDATION: 6 Month Follow-up A letter with findings and recommendations will be mailed to the patient. Reading Location: [facility] CC: Dr. Simone Marino MD [employer]over: Signed Normal [facility] Rt Brst Unilat Maged Add-Onon 04-21-2025 Rt Brst Unilat Maged Add-On [facility] Imaging Services [address] [place], [place] [id number] Rt Brst Unilat Maged Add-On MR#: [id number] Acct: [id number] Name: JARRET SHERIFF Rep #: [id number] : 1950 F 74 From: Amanda Carrasco MD PCP: Dr. Simone Marino MD Status: REG CLI Study: Rt Brst Unilat Maged Add-On Date of Exam: 04/21 Exam# [id number] Ordering Dr: Simone Marino MD EXAM: DIAG MAMM W/CAD, UNILAT; RT BRST UNILAT MAGED ADD-ON; BREAST LIMITED UNILATERAL 04/21/2025 CLINICAL HISTORY: 74-year-old female presents for follow-up of the right breast findings seen on examination of 04/07/2025. No family history of breast cancer. TECHNIQUE: DIAG MAMM W/CAD, UNILAT; RT BRST UNILAT MAGED ADD-ON; BREAST LIMITED UNILATERAL. COMPARISON: Prior exam(s) dated 04/07/2025. FINDINGS: MAMMOGRAM: TISSUE DENSITY: The breasts are heterogeneously dense, which may obscure small masses. Unilateral Right Breast Mammographic Findings: 1. Follow-up examination performed for the questionable architectural distortions in the right breast seen on examination of 04/07/2025. On the present examination, there is an focal asymmetry in the upper-outer right breast at middle depth. ULTRASOUND: 1. There is no definite sonographic correlate. 2. There is an incidental cyst cluster in the right breast at 8 o'clock 4 cm from the nipple measuring 1.0 x 0.7 x 0.3 cm. Also, there is entrapped fa/fat lobule t at 10 o'clock 5 cm from the nipple. BI/Rt Brst Unilat Maged Add-On IMPRESSION: 1. The focal asymmetry in the upper-outer right breast is probably benign. Recommended short interval diagnostic mammogram in six-months for further evaluation. 2. The cyst cluster in the right breast at 8 o'clock is probably benign. Recommend short interval diagnostic ultrasound in six-months for further evaluation. OVERALL FINAL ASSESSMENT BI-RADS 3: PROBABLY BENIGN. RECOMMENDATION: 6 Month Follow-up A letter with findings and recommendations will be mailed to the patient. Reading Location: [id number] CC: Dr. Simone Marino MD [employer]: Signed Normal [facility] Breast imaging reportOrdered By: Reyna Walker on 04-07-2025 Study report [facility] Imaging Services [address] [place] [address] SCRN MAMM (CAD)W/MAGED BILAT MR#: [id number] Acct: [id number] Name: JARRET SHERIFF Rep #: [id number] : 1950 F 74 From: Farhat Benjamin MD PCP: Dr. Simone Marino MD Status: REG C LI Study:SCRN MAMM (CAD)W/MAGED BILAT Date of Exa m: 04/07/25 Exam# [id number] Ordering Dr: Simone Marino MD EXAM: SCRN MAMM (CAD)W/MAGED BILAT DATE: 04/07/2025 CLINICAL HISTORY: F, Age 74 y/o , ANNUAL SCREENING TECHNIQUE: SCRN MAMM (CAD)W/MAGED BILAT COMPARISON: None available FINDINGS: TISSUE DENSITY: The breasts are heterogeneously dense, which may obscure small masses. Bilateral Breast Mammographic Findings: Right breast: There is questionable architectural distortion in the slightly outer right breast mid depth on the right CC view. Left breast: No suspicious masses, calcifications or other abnormalities are identified. BI/SCRN MAMM (CAD)W/MAGED BILAT IMPRESSION: Additional diagnostic imaging is recommended of the right breast with diagnosticright breast mammogram and possible ultrasound. No mammographic evidence of malignancy in the left breast OVERALL FINAL ASSESSMENT BI-RADS 0: INCOMPLETE - NEED ADDITIONAL IMAGING EVALUATION. RECOMMENDATION: Additional Views obtained/call backs A letter with findings and recommendations will be mailed to the patient. Reading Location: [id number] CC: Dr. Simone Marino MD ~ [employer]: Signed [facility] SCRN MAMM (CAD)W/MAGED BILATo n 04-07-2025 SCRN MAMM (CAD)W/MAGED BILAT [facility] Imaging Services [address] [place] [address] SCRN MAMM (CAD)W/MAGED BILAT MR#: [id number] Acct: [id number] Name: JARRET SHERIFF Rep #: [id number] : 1950 F 74 From: Reyna Langston i, MD PCP: Dr. Simone Marino MD Status: REG CLI Study: SCRN MAMM (CAD)W/MAGED BILAT Date of Exam: 03/28 10/22 Exam# [id number] Ordering Dr: Simone Marino MD EXAM: SCRN MAMM (CAD)W/MAGED BILAT DATE: 04/07/2025 CLINICAL HISTORY: F, Age 74 y/o , ANNUAL SCREENING TECHNIQUE: SCRN MAMM (CAD)W/MAGED BILAT COMPARISON: None available FINDINGS: TISSUE DENSITY: The breasts are heterogeneously dense, which may obscure small masses. Bilateral Breast Mammographic Findings: Right breast: There is questionable architectural distortion in the slightly outer right breast mid depth on the right CC view. Left breast: No suspicious masses, calcifications or other abnormalities are identified. BI/SCRN MAMM (CAD)W/MAGED BILAT IMPRESSION: Additional diagnostic imaging is recommended of the right breast with diagnostic right breast mammogram and possible ultrasound. No mammographic evidence of malignancy in the left breast OVERALL FINAL ASSESSMENT BI-RADS 0: INCOMPLETE - NEED ADDITIONAL IMAGING EVALUATION. RECOMMENDATION: Additional Views obtained/call backs A letter with findings and recommendations will be mailed to the patient. Reading Location: [id number] CC: Dr. Simone Marino MD [employer]: Signed Normal [facility] Anion gap in Serum or Plasma Ordered By: Simone Marino on 03-20-2025 Anion gap [Moles/Vol] 12 mmol/L 5-15 [facility] BUN/creatinine ratioOrdered By: Simone Marino on 03-20-2025 Urea nitrogen/Creatinine [Mass ratio] 21.5 mg/mg High 10-20 [facility] Bilirubin, totalOrdered By: Simone Marino on 03-20-2025 Bilirubin [Mass/Vol] 0.38 mg/dL 0.00-1.30 [facility] Calculated very low density lipoprotein (VLDL) cholesterol measurementOrdered By: Simone Marino on 03-20-2025 Calculated very low density lipoprotein (VLDL) cholesterol measurement 43 mg/dL High 5-40 [facility] Carbon dioxide, total [Moles /volume] in Central venous bloodOrdered By: Simone Marino on 03-20-2025 CO2 [Moles/Vol] 24.3 mmol/L 21.0-32.0 [facility] Chloride assayOrdered By: Rogelio Marino on 03-20-2025 Chloride [Moles/Vol] 101 mmol/L 98-108 [facility] Comprehensive Metabolic Prof ilon 03-20-2025 Albumin [Mass/Vol] 4.1 g/dL Normal 3.4-4.8 [facility] Comment on above: Performed By: #### L 500.4050, L501.9520, L506.0400, L501.64946, L500.4100 #### [facility] Laboratory [address] [place], [address] Albumin/Globulin [Mass ratio] 1.4 {ratio} Normal 0.9-2.4 [facility] Comment on above: Performed By: #### L 500.4050, L501.9520, L506.0400, L501.60426, L500.4100 #### [facility] [address] [place], [address] ALK PHOS 65 U/L Normal 35-104 [facility] Comment on above: Performed By: #### L 500.4050, L501.9520, L506.0400, L501.72381, L500.4100 #### [facility] [address] [place], [address] ALT [Catalytic activity/Vol] 17 U/L Normal <=34 [facility] Comment on above: Performed By: #### L 500.4050, L501.9520, L506.0400, L501.83206, L500.4100 #### [facility] [address] [place], [address] AST [Catalytic activity/Vol] 26 U/L Normal <=31 [facility] Comment on above: Performed By: #### L 500.4050, L501.9520, L506.0400, L501.70312, L500.4100 #### [facility] [address] [place], [address] Bilirubin [Mass/Vol] 0.38 mg/dL Normal 0.00-1.30 [facility] Comment on above: Performed By: #### L 500.4050, L501.9520, L506.0400, L501.62755, L500.4100 #### [facility] [address] [place], [address] BUN/CRE 21.5 RATIO High 10-20 [facility] Comment on above: Performed By: #### L 500.4050, L501.9520, L506.0400, L501.40702, L500.4100 #### [facility] [address] [place], [address] Calcium [Mass/Vol] 9.4 mg/dL Normal 7.6-11.0 [facility] Comment on above: Performed By: #### L 500.4050, L501.9520, L506.0400, L501.09109, L500.4100 #### [facility] [address] [place], [address] Chloride [Moles/Vol] 101 mmol/L Normal 98-108 [facility] Comment on above: Performed By: #### L 500.4050, L501.9520, L506.0400, L501.18361, L500.4100 #### [facility] [address] [place], [address] CO2 [Moles/Vol] 24.3 mmol/L Normal 21.0-32.0 [facility] Comment on above: Performed By: #### L 500.4050, L501.9520, L506.0400, L501.11784, L500.4100 #### [facility] [address] [place], [address] Creatinine [Mass/Vol] 1.04 mg/dL Normal 0.70-1.20 [facility] Comment on above: Performed By: #### L 500.4050, L501.9520, L506.0400, L501.84981, L500.4100 #### [facility] [address] [place], [address] GAP 12 Normal 5-15 [facility] Comment on above: Performed By: #### L 500.4050, L501.9520, L506.0400, L501.89883, L500.4100 #### [facility] [address] [place], [address] GFR/1.73 sq M.predicted among non-blacks MDRD (S/P/Bld) [Vol rate/Area] 57 mL/min/{1.73_m2} Low >60 [facility] Comment on above: Result Comment: mL/m in/1.73m2 CKD-EPI Creatinine Equation (2020) Performed By: #### L 500.4050, L501.9520, L506.0400, L501.23408, L500.4100 #### [facility] [address] [place], [address] Globulin (S) [Mass/Vol] 2.9 g/dL Normal 2.2-4.2 [facility] Comment on above: Performed By: #### L 500.4050, L501.9520, L506.0400, L501.27352, L500.4100 #### [facility] [address] [place], [address] Glucose [Mass/Vol] 98 mg/dL Normal 70-99 [facility] Comment on above: Performed By: #### L 500.4050, L501.9520, L506.0400, L501.70509, L500.4100 #### [facility] [address] [place], [address] Potassium [Moles/Vol] 4.2 mmol/L Normal 3.3-5.1 [facility] Comment on above: Performed By: #### L 500.4050, L501.9520, L506.0400, L501.24557, L500.4100 #### [facility] [address] [place], [address] Sodium [Moles/Vol] 138 mmol/L Normal 133-145 [facility] Comment on above: Performed By: #### L 500.4050, L501.9520, L506.0400, L501.44368, L500.4100 #### [facility] [address] [place], [address] T PROT 7.0 g/dL Normal 5.9-8.4 [facility] Comment on above: Performed By: #### L 500.4050, L501.9520, L506.0400, L501.15234, L500.4100 #### [facility] [address] [place], [address] Urea nitrogen [Mass/Vol] 22 mg/dL High 4-19 [facility] Comment on above: Performed By: #### L 500.4050, L501.9520, L506.0400, L501.86288, L500.4100 #### [facility] [address] [place], [address] Free T3on 03-20-2025 Free T3 [Mass/Vol] 2.6 pg/mL Normal 2.18-3.98 [facility] Comment on above: Performed By: #### L 500.4050, L501.9520, L506.0400, L501.02581, L500.4100 #### [facility] [address] [place], [address] Free Q2Kmjptys By: Simone anderson on 03-20-2025 Free T3 [Mass/Vol] 2.6 pg/mL 2.18-3.98 [facility] Glomerular filtration rate ( GFR) estimation/1.73 sq m using serum, plasma, or whole bOrdered By: Simone Marino on 03-20-2025 GFR/1.73 sq M.predicted among non-blacks MDRD (S/P/Bld) [Vol rate/Area] 57 mL/min/{1.73_m2} Low >60 [facility] Comment on above: mL/min/1.73m2 CKD-EP I Creatinine Equation (2020) LDL calc ser/plasOrdered By: Simone Marino on 03-20-2025 Cholesterol in LDL [Mass/Vol] 127 mg/dL [facility] Comment on above: Lytxedxvyg=931-749 m g/dL & Higher Ewxr=731 mg/dL or greater Laboratory - Chemistry and C hemistry - challengeOrdered By: Simone Marino on 03-20-2025 AST [Catalytic activity/Vol] 26 U/L <32 [facility] Lipid Profileon 03-20-2025 CHOL:HDL 4.22 Normal [facility] Comment on above: Performed By: #### L 500.4050, L501.9520, L506.0400, L501.84871, L500.4100 #### [facility] [address] [facility] [place], [address] Cholesterol [Mass/Vol] 223 mg/dL High <=200 [facility] Comment on above: Result Comment: Chol esterol level, Desirable <200 mg/dL Borderline high cholesterol 200-239 mg/dL High cholesterol >=240 mg/dL Recommendations of the NCEP Adult Treatment Panel for the following risk-cutoff thresholds for the [place] population. Performed By: #### L 500.4050, L501.9520, L506.0400, L501.09950, L500.4100 #### [facility] [address] [place], [address] Cholesterol in HDL [Mass/Vol] 53 mg/dL Normal [facility] Comment on above: Result Comment: [place] onal Cholesterol Education Program (NCEP) guidelines: <40 mg/dL: Low HDL-cholesterol (major risk factor for CHD) >= 60 mg/dL: High HDL-cholesterol (negative risk factor for CHD) HDL-cholesterol is affected by a number of factors, e.g. smoking, exercise, hormones, sex and age. Performed By: #### L 500.4050, L501.9520, L506.0400, L501.87228, L500.4100 #### [facility] [address] [place], [address] Cholesterol in LDL [Mass/Vol] 127 mg/dL Normal [facility] Comment on above: Result Comment: Bord gblror=536-788 mg/dL Higher Eeda=812 mg/dL or greater Performed By: #### L 500.4050, L501.9520, L506.0400, L501.57818, L500.4100 #### [facility] [address] [place], [address] Cholesterol in VLDL [Mass/Vol] 43 mg/dL High 5-40 [facility] Comment on above: Performed By: #### L 500.4050, L501.9520, L506.0400, L501.99901, L500.4100 #### [facility] [address] [place], [address] Triglyceride [Mass/Vol] 214 mg/dL High [facility] Comment on above: Result Comment: The drugs N-Acetylcysteine and Metamizole may falsely depress this assay. Normal range: <150 mg/dL Borderline High: 150-199 mg/dL High: 200-499 mg/dL Very High: >500 mg/dL Performed By: #### L 500.4050, L501.9520, L506.0400, L501.33714, L500.4100 #### [facility] [address] [place], [address] Potassium measurement (mass/ volume)Ordered By: Simone Marino on 03-20-2025 Potassium (Unsp spec) [Mass/Vol] 4.2 mmol/L 3.3-5.1 [facility] Screening total cholesterol/ high density lipoprotein (HDL) cholesterol ratioOrdered By: Simone Marino on 03-20-2025 Cholesterol.total/Elsie sterol in HDL [Mass ratio] 4.22 {ratio} [facility] Serum creatinine measurement (mass/volume)Ordered By: Simone Marino on 03-20-2025 Creatinine [Mass/Vol] 1.04 mg/dL 0.70-1.20 [facility] Serum globulin measurementOr dered By: Simone Marino on 03-20-2025 Globulin (S) [Mass/Vol] 2.9 g/dL 2.2-4.2 [facility] Serum glucose measurement (m ass/volume)Ordered By: Simone Marino on 03-20-2025 Glucose [Mass/Vol] 98 mg/dL 70-99 [facility] Serum or plasma alanine coy otransferase (ALT) measurementOrdered By: Simone Marino on 03-20-2025 ALT [Catalytic activity/Vol] 17 U/L <35 [facility] Serum or plasma albumin rickie urement (mass/volume)Ordered By: Simone Marino on 03-20-2025 Albumin [Mass/Vol] 4.1 g/dL 3.4-4.8 [facility] Serum or plasma albumin/glob ulin mass ratioOrdered By: Simone Marino on 03-20-2025 Albumin/Globulin [Mass ratio] 1.4 {ratio} 0.9-2.4 [facility] Serum or plasma alkaline brayan sphatase measurementOrdered By: Simone Marino on 03-20-2025 ALP [Catalytic activity/Vol] 65 U/L 35-104 [facility] Serum or plasma calcium rickie urement (mass/volume)Ordered By: Simone Marino on 03-20-2025 Calcium [Mass/Vol] 9.4 mg/dL 7.6-11.0 [facility] Serum or plasma cholesterol in HDL measurement (mass/volume)Ordered By: Simone Marino on 03-20-2025 Cholesterol in HDL [Mass/Vol] 53 mg/dL >40 [facility] Comment on above: National Cholesterol Education Program (NCEP) guidelines:<40 mg/dL: Low HDL-cholesterol (major risk factor for CHD)>= 60 mg/dL: High HDL-cholesterol (negative risk factor for CHD)HDL-cholesterol is affected by a number of factors, e.g. smoking, exercise, hormones, sex and age. Serum or plasma cholesterol measurement (mass/volume)Ordered By: Simone Marino on 03-20-2025 Cholesterol [Mass/Vol] 223 mg/dL High <201 [facility] Comment on above: Cholesterol level, D esirable <200 mg/dLBorderline high cholesterol 200-239 mg/dLHigh cholesterol >=240 mg/dLRecommendations of the NCEP Adult Treatment Panel for the following risk-cutoff thresholds for the [place] population. Serum or plasma urea nitroge n measurement (mass/volume)Ordered By: Simone Marino on 03-20-2025 Urea nitrogen [Mass/Vol] 22 mg/dL High 4-19 [facility] Sodium levelOrdered By: Simone Marino on 03-20-2025 Sodium [Moles/Vol] 138 mmol/L 133-145 [facility] T4 Free Directon 03-20-2025 T4 FREE DIRECT 1.00 ng/dL Normal 0.76-1.46 [facility] Comment on above: Performed By: #### L 500.4050, L501.9520, L506.0400, L501.34191, L500.4100 #### [facility] [address] [place], [place], [address] T4 freeOrdered By: Siomne anderson on 03-20-2025 Free T4 [Mass/Vol] 1.00 ng/dL 0.76-1.46 [facility] TSH DL <= 0.005 mIU/L QnOrde red By: Simone Marino on 03-20-2025 TSH Qn 7.060 uIU/mL High 0.300-4.200 [facility] Thyroid Stim Hormone (TSH)on 03-20-2025 TSH 7.060 uIU/mL High 0.300-4.200 [facility] Comment on above: Performed By: #### L 500.4050, L501.9520, L506.0400, L501.45362, L500.4100 #### [facility] [address] [place], [place], [address] Total proteinOrdered By: Beth Marino on 03-20-2025 Protein [Mass/Vol] 7.0 g/dL 5.9-8.4 [facility] Triglycerides measurementOrd ered By: Simone Marino on 03-20-2025 Triglyceride [Mass/Vol] 214 mg/dL High <199 [facility] Comment on above: The drugs N-Acetylcy steine and Metamizole may falsely depress this assay. Normal range: <150 mg/dLBorderline High: 150-199 mg/dLHigh: 200-499 mg/dLVery High: >500 mg/dL Basic Metabolic Profile (BMP )on 09-14-2024 BUN/CRE 21.8 RATIO High 10-20 [facility] Comment on above: Performed By: #### L 500.4100, L501.85223, L501.9520, L500.2500, L506.0400 #### [facility] [address] [place], [address] CA,Total 10.0 mg/dL Normal 8.5-10.1 [facility] Comment on above: Performed By: #### L 500.4100, L501.93191, L501.9520, L500.2500, L506.0400 #### [facility] [address] [place], [address] Chloride [Moles/Vol] 106 mmol/L Normal 98-107 [facility] Comment on above: Performed By: #### L 500.4100, L501.56694, L501.9520, L500.2500, L506.0400 #### [facility] [address] [place], [address] CO2 [Moles/Vol] 27.0 mmol/L Normal 21.0-32.0 [facility] Comment on above: Performed By: #### L 500.4100, L501.58266, L501.9520, L500.2500, L506.0400 #### [facility] [address] [place], [address] Creatinine [Mass/Vol] 0.87 mg/dL Normal 0.55-1.02 [facility] Comment on above: Result Comment: The validity of the calculated GFR GFRAA in patients over 70 years has not been determined. Clinical correlation is essential. Performed By: #### L 500.4100, L501.00262, L501.9520, L500.2500, L506.0400 #### [facility] [address] [place], [address] EST GFR - AA 82 mL/min Normal >60 [facility] Comment on above: Result Comment: Afri can Thai GFR Calc Performed By: #### L 500.4100, L501.05347, L501.9520, L500.2500, L506.0400 #### [facility] [address] [place], [address] GAP 6 Normal 5-15 [facility] Comment on above: Performed By: #### L 500.4100, L501.40983, L501.9520, L500.2500, L506.0400 #### [facility] [address] [place], [address] GFR/1.73 sq M.predicted among non-blacks MDRD (S/P/Bld) [Vol rate/Area] 68 mL/min/{1.73_m2} Normal >60 [facility] Comment on above: Result Comment: Non- GFR Calc Performed By: #### L 500.4100, L501.49259, L501.9520, L500.2500, L506.0400 #### [facility] [address] [place], [address] Glucose [Mass/Vol] 91 mg/dL Normal 74-106 [facility] Comment on above: Performed By: #### L 500.4100, L501.30213, L501.9520, L500.2500, L506.0400 #### [facility] [address] [place], [address] Potassium [Moles/Vol] 4.0 mmol/L Normal 3.5-5.1 [facility] Comment on above: Performed By: #### L 500.4100, L501.61508, L501.9520, L500.2500, L506.0400 #### [facility] [address] [place], [address] Sodium [Moles/Vol] 139 mmol/L Normal 136-145 [facility] Comment on above: Performed By: #### L 500.4100, L501.81157, L501.9520, L500.2500, L506.0400 #### [facility] [address] [place], [address] Urea nitrogen [Mass/Vol] 19 mg/dL High -18 [facility] Comment on above: Performed By: #### L 500.4100, L501.84601, L501.9520, L500.2500, L506.0400 #### [facility] [address] [place], [address] Free T3on 09-14-2024 Free T3 [Mass/Vol] 2.2 pg/mL Normal 2.18-3.98 [facility] Comment on above: Performed By: #### L 500.4100, L501.57136, L501.9520, L500.2500, L506.0400 #### [facility] [address] [place], [address] Lipid Profileon 09-14-2024 Cholesterol [Mass/Vol] 194 mg/dL Normal 200 [facility] Comment on above: Result Comment: <200 mg/dL Desirable 200-240 mg/dL Borderline >240 mg/dL High Risk Performed By: #### L 500.4100, L501.47818, L501.9520, L500.2500, L506.0400 #### [facility] [address] [place], [address] Cholesterol in HDL [Mass/Vol] 60 mg/dL Normal [facility] Comment on above: Result Comment: The drugs N-Acetylcysteine and Metamizole may falsely depress this assay. Reference Range HDL <40 mg/dL Low HDL Cholesterol HDL >or= 60 mg/dL High HDL Cholesterol Performed By: #### L 500.4100, L501.96999, L501.9520, L500.2500, L506.0400 #### [facility] [address] [place], [address] Cholesterol in LDL [Mass/Vol] 102 mg/dL Normal 0-130 [facility] Comment on above: Performed By: #### L 500.4100, L501.58136, L501.9520, L500.2500, L506.0400 #### [facility] [address] [place], [address] Cholesterol in VLDL [Mass/Vol] 32 mg/dL Normal 5-40 [facility] Comment on above: Performed By: #### L 500.4100, L501.96989, L501.9520, L500.2500, L506.0400 #### [facility] [address] [place], [address] Triglyceride [Mass/Vol] 159 mg/dL Normal [facility] Comment on above: Result Comment: The drugs N-Acetylcysteine and Metamizole may falsely depress this assay. Serum Triglycerides Reference Interval Normal <150 mg/dL Borderline high 150 - 199 mg/dL High 200 - 499 mg/dL Very High > or = 500 mg/dL Performed By: #### L 500.4100, L501.40119, L501.9520, L500.2500, L506.0400 #### [facility] [address] [place], [address] T4 Free Directon 09-14-2024 T4 FREE DIRECT 1.10 ng/dL Normal 0.76-1.46 [facility] Comment on above: Performed By: #### L 500.4050, L501.9520, L506.0400, L501.55467, L500.4100 #### [facility] [address] [place], [address] Thyroid Stim Hormone (TSH)on 09-14-2024 TSH 2.590 uIU/mL Normal 0.358-3.740 [facility] Comment on above: Performed By: #### L 500.4100, L501.37111, L501.9520, L500.2500, L506.0400 #### [facility] [address] [place], [address] Basophil percentageOrdered B y: Simone Marino on 09-08-2023 Bilirubin [Mass/Vol] 0.40 mg/dL 0.20-1.00 [facility] Comment on above: For patients on eltr ombopag therapy, use of Dimension [place] TBIL is not recommended. Chloride [Moles/Vol] 106 mmol/L 98-107 [facility] Cholesterol [Mass/Vol] 181 mg/dL <200 [facility] Comment on above: <200 mg/dL Desirable 200-240 mg/dL Borderline >240 mg/dL High Risk Glucose [Mass/Vol] 90 mg/dL 74-106 [facility] Potassium [Moles/Vol] 3.6 mmol/L 3.5-5.1 [facility] Protein [Mass/Vol] 7.1 g/dL 6.4-8.2 [facility] Sodium [Moles/Vol] 139 mmol/L 136-145 [facility] Triglyceride [Mass/Vol] 131 mg/dL <199 [facility] Comment on above: The drugs N-Acetylcy steine and Metamizole may falsely depress this assay.Serum Triglycerides Reference Interval Normal <150 mg/dL Borderline high 150 - 199 mg/dL High 200 - 499 mg/dL Very High > or = 500 mg/dL Laboratory - Chemistry and C hemistry - challengeOrdered By: Simone Marino on 09-08-2023 ALP [Catalytic activity/Vol] 67 U/L 45-117 [facility] ALT [Catalytic activity/Vol] 28 U/L 13-56 [facility] CO2 [Moles/Vol] 31.0 mmol/L 21.0-32.0 [facility] Free T4 [Mass/Vol] 1.16 ng/dL 0.76-1.46 [facility] Globulin (S) [Mass/Vol] 3.4 g/dL 2.2-4.2 [facility] Urea nitrogen/Creatinine [Mass ratio] 22.3 mg/mg 10-20 [facility] No Panel InformationOrdered By: Simone Marino on 09-08-2023 Estimated GFR (MDRD) Amer 84 mL/min >60 [facility] Comment on above: GFR Calc Estimated GFR (MDRD) Non-Af Amer 70 mL/min >60 [facility] Comment on above: Non- GFR Calc Free Triiodothyronine (T3) pg/dL 2.1 pg/mL 2.18-3.98 [facility] Thyroid Stimulating Hormone (TSH) 1.38 uIU/mL 0.358-3.74 [facility] Serum or plasma albumin rickie urement (mass/volume)Ordered By: Simone Mraino on 09-08-2023 Albumin [Mass/Vol] 3.7 g/dL 3.2-5.0 [facility] Serum or plasma albumin/glob ulin mass ratioOrdered By: Simone Marino on 09-08-2023 Albumin/Globulin [Mass ratio] 1.1 {ratio} 0.9-2.4 [facility] Serum or plasma calcium rickie urement (mass/volume)Ordered By: Simone Marino on 09-08-2023 Calcium [Mass/Vol] 9.3 mg/dL 8.5-10.1 [facility] Serum or plasma cholesterol in HDL measurement (mass/volume)Ordered By: Simone Marino on 09-08-2023 Cholesterol in HDL [Mass/Vol] 56 mg/dL >40 [facility] Comment on above: The drugs N-Acetylcy steine and Metamizole may falsely depress this assay. Reference Range HDL <40 mg/dL Low HDL Cholesterol HDL >or= 60 mg/dL High HDL Cholesterol Serum or plasma cholesterol in VLDL measurement (mass/volume)Ordered By: Simone Marino on 09-08-2023 Cholesterol in VLDL [Mass/Vol] 26 mg/dL 5-40 [facility] Serum or plasma creatinine m easurement (mass/volume)Ordered By: Simone Marino on 09-08-2023 Creatinine [Mass/Vol] 0.85 mg/dL 0.55-1.02 [facility] Comment on above: The validity of the calculated GFR & GFRAA in patients over 70 years has not been determined. Clinical correlation is essential. Serum or plasma low density lipoprotein (LDL) cholesterol measurement (mass/volume)Ordered By: Simone Marino on 09-08-2023 Cholesterol in LDL [Mass/Vol] 99 mg/dL 0-130 [facility] Serum or plasma urea nitroge n measurement (mass/volume)Ordered By: Simone Marino on 09-08-2023 Urea nitrogen [Mass/Vol] 19 mg/dL 7-18 [facility] Thin prep Papanicolaou smear with manual screeningOrdered By: Simone Marino on 09-08-2023 Thin prep Papanicolaou smear with manual screening 20 U/L 15-37 [facility] Thin prep Papanicolaou smear with manual screening 2 5-15 [facility] Basophil percentageOrdered B y: Dr. Marino on 03-10-2023 Chloride [Moles/Vol] 108 mmol/L 98-107 [facility] Cholesterol [Mass/Vol] 250 mg/dL <200 [facility] Comment on above: <200 mg/dL Desirable 200-240 mg/dL Borderline >240 mg/dL High Risk Glucose [Mass/Vol] 99 mg/dL 74-106 [facility] Potassium [Moles/Vol] 3.8 mmol/L 3.5-5.1 [facility] Sodium [Moles/Vol] 141 mmol/L 136-145 [facility] Triglyceride [Mass/Vol] 94 mg/dL <199 [facility] Comment on above: The drugs N-Acetylcy steine and Metamizole may falsely depress this assay.Serum Triglycerides Reference Interval Normal <150 mg/dL Borderline high 150 - 199 mg/dL High 200 - 499 mg/dL Very High > or = 500 mg/dL Laboratory - Chemistry and C hemistry - challengeOrdered By: Dr. Marino on 06-13-2023 CO2 [Moles/Vol] 32.0 mmol/L 21.0-32.0 [facility] Free T4 [Mass/Vol] 1.09 ng/dL 0.76-1.46 [facility] Urea nitrogen/Creatinine [Mass ratio] 26.2 mg/mg 10-20 [facility] No Panel InformationOrdered By: Dr. Marino on 03-10-2023 Estimated GFR (MDRD) Amer 90 mL/min >60 [facility] Comment on above: GFR Calc Estimated GFR (MDRD) Non-Af Amer 75 mL/min >60 [facility] Comment on above: Non- GFR Calc Free Triiodothyronine (T3) pg/dL 2.3 pg/mL 2.18-3.98 [facility] Thyroid Stimulating Hormone (TSH) 5.57 uIU/mL 0.358-3.74 [facility] Total Triiodothyronine 0.99 ng/mL 0.6-1.81 [facility] Serum or plasma calcium rickie urement (mass/volume)Ordered By: Dr. Marino on 03-10-2023 Calcium [Mass/Vol] 9.4 mg/dL 8.5-10.1 [facility] Serum or plasma cholesterol in HDL measurement (mass/volume)Ordered By: Dr. Marino on 03-10-2023 Cholesterol in HDL [Mass/Vol] 61 mg/dL >40 [facility] Comment on above: The drugs N-Acetylcy steine and Metamizole may falsely depress this assay. Reference Range HDL <40 mg/dL Low HDL Cholesterol HDL >or= 60 mg/dL High HDL Cholesterol Serum or plasma cholesterol in VLDL measurement (mass/volume)Ordered By: Dr. Marino on 03-10-2023 Cholesterol in VLDL [Mass/Vol] 19 mg/dL 5-40 [facility] Serum or plasma creatinine m easurement (mass/volume)Ordered By: Dr. Marino on 03-10-2023 Creatinine [Mass/Vol] 0.80 mg/dL 0.55-1.02 [facility] Comment on above: The validity of the calculated GFR & GFRAA in patients over 70 years has not been determined. Clinical correlation is essential. Serum or plasma low density lipoprotein (LDL) cholesterol measurement (mass/volume)Ordered By: Dr. Marino on 03-10-2023 Cholesterol in LDL [Mass/Vol] 170 mg/dL 0-130 [facility] Serum or plasma urea nitroge n measurement (mass/volume)Ordered By: Dr. Marino on 03-10-2023 Urea nitrogen [Mass/Vol] 21 mg/dL 7-18 [facility] Thin prep Papanicolaou smear with manual screeningOrdered By: Dr. Marino on 03-10-2023 Thin prep Papanicolaou smear with manual screening 1 5-15 [facility] Encounters Encounter Date Encounter Type Care Provider Facility Start: 08-09-2025 ambulatory Simone Marino Facility:[facility] Start: 04-21-2025 End: 04-21-[address] Simone Marino MD Work Phone: -[facility]patient [facility] Start: 04-21-2025 End: 04-21-[address] Simone Marino MD -[facility] Work Phone: Start: 04-21-2025 End: 04-21-2025 ambulatory Simone Marino Facility:[facility] Start: 04-07-2025 End: 04-07-[address] Simone Marino MD Work Phone: -[facility] Start: 04-07-2025 End: 04-07-[address] Simone Marino MD -[facility] Work Phone: Start: 04-07-2025 End: 04-07-2025 ambulatory Simone [place] Facility:[facility] Start: 03-20-2025 End: 03-20-[address] Simone Marino MD [facility] Start: 03-20-2025 End: 03-20-[address] Simone Marino MD -Laboratory [facility] Start: 03-20-2025 End: 03-20-2025 ambulatory Simone Marino Facility:[facility] Start: 09-14-2024 End: 09-14-2024 ambulatory Simone Marino Facility:[facility] Start: 09-08-2023 End: 09-08-2023 ambulatory [facility] Work Phone: Start: 09-08-2023 End: 09-08-2023 Patient encounter procedure [facility] Work Phone: Start: 03-10-2023 End: 03-10-2023 ambulatory [facility] Work Phone: Start: 03-10-2023 End: 03-10-2023 Patient encounter procedure [facility] Procedures Date Procedure Procedure Detail Performing Clinician Start: 04-21-[address] Simone Marino MD Work Phone: Start: 04-21-[address] Simone mcarthur MD Work Phone: Start: 04-07-2025 Screening mammography Bree Marino MD Work Phone: Payers Date Payer Category Payer Medicare [id number] 2024 Self-pay [id number] Medicare MMO MEDICARE [id number] Unknown [id number] Unknown [id number] Unknown [id number] Unknown [id number] Unknown [id number] Unknown [id number] Social History Date Type Detail Facility Start: 05-24-2021 End: 05-24-2021 Tobacco smoking status NHIS Unknown if ever smoked [facility] Start: 1950 Sex Assigned At Female [facility] Start: 05-24-2021 Tobacco smoking stat us NHIS Smokes tobacco daily (finding) [facility] Radiology Diagnostic study note 04-21-2025 Note Date & Type Note Facility 04-21-2025 Radiology Diagnostic study note [facility] Imaging Services [address] [place], [place] [address] Breast Limited Unilateral MR#: [id number] Acct: [id number] Name: JARRET SHERIFF Rep #: [id number] : 1950 F 74 From: Theresa Carrasco MD PCP: Dr. Simone Marino MD Status: SHREYA YOUNG Study:Breast Limited Unilateral Date of Exam: 04/21/25 Exam# [id number] Ordering Dr: Simone Marino MD EXAM: DIAG MAMM W/CAD, UNILAT; RT BRST UNILAT MAGED ADD-ON; BREAST LIMITED UNILATERAL 04/21/2025 CLINICAL HISTORY: 74-year-old female presents for follow-up of the right breast findings seen on examination of 04/07/2025. No family history of breast cancer. TECHNIQUE: DIAG MAMM W/CAD, UNILAT; RT BRST UNILAT MAGED ADD-ON; BREAST LIMITED UNILATERAL. COMPARISON: Prior exam(s) dated 04/07/2025. FINDINGS: MAMMOGRAM: TISSUE DENSITY: The breasts are heterogeneously dense, which may obscure small masses. Unilateral Right Breast Mammographic Findings: 1. Follow-up examination performed for the questionable architectural distortions in the right breast seen on examination of 04/07/2025. On the present examination, there is an focal asymmetry in the upper-outer right breast at middle depth. ULTRASOUND: 1. There is no definite sonographic correlate. 2. There is an incidental cyst cluster in the right breast at 8 o'clock 4 cm from the nipple measuring 1.0 x 0.7 x 0.3 cm. Also, there is entrapped fa/fat lobule t at 10 o'clock 5 cm from the nipple. US/Breast Limited Unilateral IMPRESSION: 1. The focal asymmetry in the upper-outer right breast is probably benign. Recommended short interval diagnostic mammogram in six-months for further evaluation. 2. The cyst cluster in the right breast at 8 o'clock is probably benign. Recommend short interval diagnostic ultrasound in six-months for further evaluation. OVERALL FINAL ASSESSMENT BI-RADS 3: PROBABLY BENIGN. RECOMMENDATION: 6 Month Follow-up A letter with findings and recommendations will be mailed to the patient. Reading Location: [id number] CC: Dr. Simone Marino MD ~ [employer]: Signed [facility] Evaluation note Note Date & Type Note Facility Evaluation note No assessment information availa ble [facility] Work Phone: Reason for referral (narrative) Note Date & Type Note Facility Reason for referral (narrative) No reason for referral information available [facility] Work Phone: Family History No Family History Records Found Relationship Condition Age at Onset Recorded Date/T neil sister Malignant neoplasm of breast Unknown brother Malignant neoplasm Unknown mother Kidney disorder Unknown Chief Complaint and Reason for Visit Chief Complaint Admit Date SCREENING April 07, 2025 2:34 pm Chief Complaint Admit Date SCREENING April 07, 2025 2:34 pm ABNORMAL BI April 21, 2025 12:4 3pm Summary Purpose Advance Directives No Advanced Directives Records Found Additional Source Comments Care Teams (unrecognized sec tion and content) Team Status: Active Member Role Status Dates Dr. Simone Marino MD Family Provider Active Dr. Simone Marino MD Primary Care Provider Active Team Status: Inactive Member Role Status Dates Dr. Simone Marino MD Primary Care Provi steven, Attending Provider, Referring Provider Active Team Status: Active Member Role/Relationship Status Dates Dr. Simone Marino MD Family Provider Active Dr. Simone Marino MD Primary Care Provider Active Team Status: Inactive Member Role/Relationship Status Dates Dr. Simone Marino MD Primary Care Provider Active Start: March 20, 2025 End: March 20, 2025 Dr. Simone Marino MD Attending Provider Active Start: March 20, 2025 End: March 20, 2025 Team Status: Active Member Role/Relationship Status Dates Dr. Simone Marino MD Primary Care Provider Active Team Status: Inactive Member Role/Relationship Status Dates Dr. Simone Marino MD Primary Care Provider Active Start: April 07, 2025 End: April 07, 2025 Dr. Simoen Marino MD Attending Provider Active Start: April 07, 2025 End: April 07, 2025 Dr. Simone Marino MD Referring Provider Active Start: April 07, 2025 End: April 07, 2025 Team Status: Inactive Member Role/Relationship Status Dates Dr. Simone Marino MD Primary Care Provider Active Start: April 21, 2025 End: April 21, 2025 Dr. Simone Marino MD Attending Provider Active Start: April 21, 2025 End: April 21, 2025 Dr. Simone Marino MD Referring Provider Active Start: April 21, 2025 End: April 21, 2025 Goals (unrecognized section and content) Goals may be documented in a n alternate sectionGoals may be documented in an alternate sectionGoals may be documented in an alternate sectionGoals may be documented in an alternate section INFORMATION SOURCE (unrecogn ized section and content) DATE CREATED AUTHOR 08/08/2025 [facility] FOR RECORDS PERTAINING TO PATIENTS WHO ARE OR HAVE BEEN ENROLLED IN A CHEMICAL DEPENDENCY/SUBSTANCEABUSE PROGRAM, SOME INFORMATION MAY BE OMITTED. This clinical summary was aggregated from multiple sources. Caution should be exercised in using it in the provision of clinical care. This summary normalizes information from multiple sources, and as a consequence, information in this document may materially change the coding, format and clinical context of patient data. In addition, data may be omitted in some cases. CLINICAL DECISIONS SHOULD BE BASED ON THE PRIMARY CLINICAL RECORDS. [facility]. provides no warranty or guarantee of the accuracy or completeness of information in this document.
[2025-08-09] MEDS: Lactated Ringers 1,000 ML 15 ML IV (06:44)
--- NOTE | 2025-08-09 06:47 | PCM.PRE.AN2 ---
ASA Classification* ASA Classification ASA Classification: 2 Assessment & Plan Anesthesia* Anesthesia Assessment Anesthesia Assessment: Discussed sedation and/or anesthesia options, risks, benefits, and alternatives with patient/parents/legal guardian/POA. Questions invited. The patient/parents/legal guardian/POA seems to understand and agrees to proceed with anesthesia plan. Reviewed the physical assessment, medical history, allergy history and patient home medications list prior to surgery/procedure/anesthetic and documented any changes. Performed airway and anesthesia risk assessments. Anesthesia Type Anesthesia Type: MAC History Source History Obtained from:: Patient and Chart Anesthesia Focused Assessment* Temperature: 97.3 F Pulse Rate: 97 Blood Pressure: 154/89 Respiratory Rate: 16 Pulse Ox: 99 Oxygen Delivery Method: Room Air Airway Assessment Mouth opens: >3 cm Mallampati Score: II Neck Range of motion (ROM): Full ROM Labs Anesthesia Preop lab: CBC WBC, (4.4-11.0) 5.3 K/mm3 09/04/22, 15:05 RBC, (4.2-5.4) 4.46 M/mm3 09/04/22, 15:05 Hgb, (12.0-15.0) 13.5 g/dL 09/04/22, 15:05 Hct, (37-47) 40.9 % 09/04/22, 15:05 Plt Count, (150-450) 239 K/mm3 09/04/22, 15:05 CHEMISTRY Potassium, (3.3-5.1) 4.2 mmol/L 03/20/25, 10:34 Sodium, (133-145) 138 mmol/L 03/20/25, 10:34 BUN, (4-19) 22 mg/dL H 03/20/25, 10:34 Creatinine, (0.70-1.20) 1.04 mg/dL 03/20/25, 10:34 Glucose, (70-99) 98 mg/dL 03/20/25, 10:34 TSH, (0.300-4.200) 7.060 uIU/mL H 03/20/25, 10:34 COAG Pre-Assessment Diagnosis/Proposed Procedure Planned Operative Procedure(s): COLONOSCOPY-OA Anesthesia History 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 When Was Last Pacemaker Check QUESTION #4 FULL TEXT: You/Your Family Experience fever (hyperthermia) with Anesthesia Last Oral Intake Last Oral intake: Last Oral Intake NPO since 23:00 08/09/25 06:30 Meds taken in AM with sips of No 08/09/25 06:30 water? Meds patient instructed to take am of surgery PONV PONV - finish machine tender: PONV - finish machine tender Female Yes 08/07/25 15:06 HX of Motion Sickness No 08/07/25 15:06 HX of N/V After Surgery No 08/07/25 15:06 Non-Smoker Yes 08/07/25 15:06 Duration of Surgery greater No 08/07/25 15:06 than 60 minutes Number of Risk Factors 2 08/07/25 15:06 PONV Score Moderate Risk 08/07/25 15:06 Height & Weight Height & Weight: Anesthesia: Height & Weight Height 5 ft 3.3 in 08/09/25 06:30 Weight: 80 kg 08/09/25 06:30 Body Mass Index (BMI) 30.9 08/09/25 06:30 Respiratory Assessment Respiratory Assessment - finish machine tender: Respiratory Tract Infection Hx - finish machine tender Hx Respiratory Tract Infection No 08/07/25 15:06 STOP Sleep Apnea STOP Sleep Apnea - finish machine tender: STOP Sleep Apnea - finish machine tender Hx Hypertension No 08/07/25 15:06 Hx Sleep Apnea No 08/07/25 15:06 CPAP BIPAP Do you snore loudly (louder No 08/07/25 15:06 than talking or can be heard Do you often feel tired/ No 08/07/25 15:06 fatigued/ sleepy during daytime? Has anyone observed you stop No 08/07/25 15:06 breathing during sleep? STOP Results Negative 08/07/25 15:06 QUESTION #5 FULL TEXT : Do you snore loudly (louder than talking or can be heard through closed doors)? 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 Specify any problems Hx of Preganancy in last 3 No 08/07/25 15:06 Months Nurse Filling Out Transfusion VCHRISTIN 08/07/25 15:06 & Questions: Date: 08/07/25 08/07/25 15:06 Time: 15:08 08/07/25 15:06 Patient unable to answer at this time (ie. confused, unrespo /Reproduction History /Reproductive History - finish machine tender: /Reproductive Hx- finish machine tender Hx Now No 08/07/25 15:06 Gestational Age (in weeks): EDC: Hx Hx Para Hx Section SAB No 08/07/25 15:06 Does the father of the baby or his family experience fever w Father of the baby Malignant Hypertension history comment Active Medications Active Medications: Current Medications Generic Name Dose Route Start Last Admin Trade Name Freq PRN Reason Stop Dose Admin Lactated Ringer's 1,000 mls @ 15 mls/hr 08/09/25 06:15 08/09/25 06:44 IV 15 mls/hr .Q48H PETER Administration PFSH Medical History (Updated 08/07/25 @ 15:06 by Arline Bird) Wears glasses Post-menopausal Back pain Former smoker Hypertension Hypothyroidism (acquired) Vitamin deficiency Thyroid disease Osteoarthritis Headache Breast lump Arthritis Seasonal allergies Home Medications Medication Instructions Recorded Last Taken Type allergy injections 1 unit IM Q2W 02/12/21 Unknown History cholecalciferol (vitamin D3) 50 50 mcg PO DAILY 02/12/21 08/08/25 History mcg (2,000 unit) capsule coenzyme Q10 100 mg capsule (Co 100 mg PO DAILY 02/12/21 08/08/25 History Q-10) fexofenadine 180 mg tablet 180 mg PO DAILY PRN ALLERGIES 02/12/21 08/08/25 History (Brigitte Allergy) multivitamin 1 tab PO DAILY 02/12/21 08/08/25 History aspirin 81 mg capsule 81 mg PO DAILY 08/07/25 08/08/25 History folic acid 0.8 mg capsule 800 mcg PO DAILY 08/07/25 08/08/25 History levothyroxine 125 mcg tablet 125 mcg PO DAILY 08/07/25 08/08/25 History (Synthroid) lisinopril 20 mg tablet 20 mg PO DAILY 08/07/25 08/08/25 History rosuvastatin 5 mg tablet 5 mg PO DAILY 08/07/25 08/08/25 History Allergy/AdvReac Type Severity Reaction Status Date / Time nickel Allergy Severe ears swell Verified 08/07/25 14:57 Penicillins Allergy Intermediate hives Verified 08/07/25 14:57 Family History Sister Breast cancer Brother Cancer Mother Kidney disease Surgical History (Updated 08/07/25 @ 15:06 by Arline Bird) Hx of tonsillectomy History of total bilateral knee replacement (TKR) Social History Smoking Status: Current every day smoker tobacco type: cigarettes alcohol intake: current alcohol intake frequency: a few times a month Alcohol type: wine substance use type: does not use what type of physical activity do you participate in: walking Review of Systems (Anesthesia) ROS Narrative System reviewed and no additional complaints, except as documented. Physical Exam Const alert, oriented x3 and average body habitus Resp normal respiratory effort, normal air movement and clear to auscultation bilaterally Cardio regular rate, regular rhythm and no murmurs; Negative for diaphoretic
--- NOTE | 2025-08-09 07:14 | H&P.OPEN ---
HPI - General HPI Narrative JARRET SHERIFF, is a 74 F who presents for screening colonoscopy. Patient never had previous colonoscopy. Patient denies any family history of colon cancer. Patient denies any chronic abdominal pain/nausea/vomiting/reflux. Patient has bowel movements daily denies any blood. [facility] Medical History (Updated 08/09/25 @ 07:[address] Leonie Brady MD) Wears glasses Post-menopausal Back pain Former smoker Hypertension Hypothyroidism (acquired) Vitamin deficiency Thyroid disease Osteoarthritis Headache Breast lump Arthritis Seasonal allergies Home Medications Medication Instructions Recorded Last Taken Type allergy injections 1 unit IM Q2W 02/12/21 Unknown History cholecalciferol (vitamin D3) 50 50 mcg PO DAILY 02/12/21 08/08/25 History mcg (2,000 unit) capsule coenzyme Q10 100 mg capsule (Co 100 mg PO DAILY 02/12/21 08/08/25 History Q-10) fexofenadine 180 mg tablet 180 mg PO DAILY PRN ALLERGIES 02/12/21 08/08/25 History (Brigitte Allergy) multivitamin 1 tab PO DAILY 02/12/21 08/08/25 History aspirin 81 mg capsule 81 mg PO DAILY 08/07/25 08/08/25 History folic acid 0.8 mg capsule 800 mcg PO DAILY 08/07/25 08/08/25 History levothyroxine 125 mcg tablet 125 mcg PO DAILY 08/07/25 08/08/25 History (Synthroid) lisinopril 20 mg tablet 20 mg PO DAILY 08/07/25 08/08/25 History rosuvastatin 5 mg tablet 5 mg PO DAILY 08/07/25 08/08/25 History Allergy/AdvReac Type Severity Reaction Status Date / Time nickel Allergy Severe ears swell Verified 08/07/25 14:57 Penicillins Allergy Intermediate hives Verified 08/07/25 14:57 Family History Sister Breast cancer Brother Cancer Mother Kidney disease Surgical History (Updated 08/07/25 @ 15:06 by Arline Bird) Hx of tonsillectomy History of total bilateral knee replacement (TKR) Social History Smoking Status: Current every day smoker tobacco type: cigarettes alcohol intake: current alcohol intake frequency: a few times a month Alcohol type: wine substance use type: does not use what type of physical activity do you participate in: walking Past Medical/Surgical History Planned Operation Planned Operative Procedure(s): COLONOSCOPY-OA Previous Hospitalizations/Surgeries HX Hospitalizations: No Any Problems With Anesthesia: No You/Your Family Experience Fever (Hyperthermia) With Anes: No Cholinesterase deficiency: No Cardiovascular Hx Hypertension: No Respiratory Hx Sleep Apnea: No Hx Respiratory Tract Infection/Cold (presently): No Do You Snore Loudly (louder than talking or can be heard): No Do You Often Feel Tired/ Fatigued/ Sleepy Dring Daytime?: No Has Anyone Observed You Stop Breathing During Sleep?: No Result (for STOP score): Negative Smoking Status: Current every day smoker Neurological Does patient have nerve stimulator: No Reproduction : No Miscellaneous Recent Exposure to Contagious Disease: No Allergies nickel Allergy (Severe, Verified 08/07/25 14:57) ears swell Penicillins Allergy (Intermediate, Verified 08/07/25 14:57) hives Discharge Is Pt Admitted From a Longterm, or a Longterm: No After D/C, Where Do you Plan to Go: Return Home Vital Signs Vital Signs Vital Signs: 08/09/25 06:30 08/09/25 06:30 08/09/25 06:49 Temperature 97.3 F L 97.3 F L Temperature Source Temporal Pulse Rate 97 97 Respiratory Rate 16 16 Respiratory Pattern Normal Blood Pressure 154/89 H 154/89 H Blood Pressure Mean 110 Blood Pressure Source Monitor Blood Pressure Location Right Arm Pulse Ox 99 99 Oxygen Delivery Method Room Air Room Air Weight Weight: 176 lb 5.917 oz Body Mass Index (BMI) 30.9 Physical Exam Const alert, oriented x3 and no apparent distress HEENT normocephalic and head/scalp atraumatic Resp normal respiratory effort Cardio regular rate GI soft to palpation and non-tender; Negative for non-distended Palpation: Negative for guarding Extremity no clubbing, cyanosis or edema Skin no rashes or lesions noted Neuro CN's II-XII intact bilaterally Psych mental status grossly normal Assessment & Plan Assessment/Plan (1) Screening for colon cancer: Surgery Risks - Colonoscopy I discussed with the patient the risks of the procedure: Yes Risks Include but are not Limited To: Risks include but are not limited to: Bleeding, perforation requiring further surgery, inability to complete colonoscopy requiring barium enema.
--- NOTE | 2025-08-09 07:30 | COLBX_PTH ---
PATIENT: JARRET SHERIFF LOC: EN U#:[id number] AGE/SX: 74/F ROOM: RE08/09/[address]: Dr. Leonie Brady MD : 1950 BED: DIS: 08/09/2025 SPEC #: [id number] RECD: 08/09/25 12:03 STATUS: BEAU THERESA #: [id number] JOSE: 08/09/25 07:[address]: Leonie Brady DEPT: SURGICAL PATHOLOGY RECD BY: Yogi Robert ENTERED: 08/09/25 13:43 SP TYPE: COLON BX OTHR DR: Dr. Simone Marino MD Tissues: A - Cecum, NOS B - Sigmoid colon biopsy Procedures: Surgery Specimen Level IV HEADER OPERATION: Colonoscopy, biopsy and polypectomy PRE-OP DIAGNOSIS: Screening for colon cancer TISSUE SUBMITTED: A- Cecum biopsy, B- Sigmoid polyp MICROSCOPIC DIAGNOSIS A. Large intestine, cecum, biopsies: - Colonic mucosa with an area with superficial hyperplastic features B. Large intestine, sigmoid polyp: * Sessile polyp with artefactual distortion and with features suggesting an inflammatory polyp MICROSCOPIC DESCRIPTION Slides are reviewed. GROSS DESCRIPTION A. Received in fixative is one container labeled with the patient's name and designated "Cecum biopsy." The specimen consists of one irregular fragment of love tissue that measures 0.5 cm. The specimen is totally submitted in one cassette. B. Received in fixative is one container labeled with the patient's name and designated "Sigmoid polyp." The specimen consists of one irregular fragment of love tissue that measures 0.2 cm, admixed with flocculent material. The specimen is totally submitted in one cassette. [place] 08/09/2025 CPT:38793y7
--- NOTE | 2025-08-09 08:13 | OP.COLON_ITS ---
Patient Name: Preeti Saavedra Procedure Date: 08/09/2025 7:29 AM Date of : 1950 Age: 74 Procedure: Colonoscopy Indications: Screening for colorectal malignant neoplasm Providers: Leonie Brady MD Referring MD: Simone Marino MD Medicines: Monitored Anesthesia Care Patient Profile: This is a 74 year old female. Last Colonoscopy: none. The patient's first colonoscopy is today. Complications: No immediate complications. Procedure: Pre-Anesthesia Assessment: - Prior to the procedure, a History and Physical was performed, and patient medications and allergies were reviewed. The patient's tolerance of previous anesthesia was also reviewed. The risks and benefits of the procedure and the sedation options and risks were discussed with the patient. All questions were answered, and informed consent was obtained. Prior Anticoagulants: The patient has taken no anticoagulant or antiplatelet agents. ASA Grade Assessment: Per anesthesia. After reviewing the risks and benefits, the patient was deemed in satisfactory condition to undergo the procedure. After I obtained informed consent, the scope was passed under direct vision. Throughout the procedure, the patient's blood pressure, pulse, and oxygen saturations were monitored continuously. The pediatric colonoscope was introduced through the anus and advanced to the cecum, identified by the appendiceal orifice, ileocecal valve and palpation. The colonoscopy was performed without difficulty. The patient tolerated the procedure well. The quality of the bowel preparation was good. Scope In: 7:39:36 AM Scope Withdrawal Time 0 hours 11 minutes 1 second Scope Out: 8:04:15 AM Total Procedure Duration Time 0 hours 24 minutes 39 seconds Findings: Hemorrhoids were found on perianal exam. Non-bleeding external hemorrhoids were found. The hemorrhoids were small. Multiple small-mouthed diverticula were found in the sigmoid colon, descending colon and transverse colon. A less than 5 mm polyp was found in the cecum. The polyp was sessile. The polyp was removed with a cold biopsy forceps. Resection and retrieval were complete. A less than 5 mm polyp was found in the sigmoid colon. The polyp was semi-sessile. The polyp was removed with a hot snare. Resection and retrieval were complete. The exam was otherwise without abnormality on direct and retroflexion views. Impression: - Hemorrhoids found on perianal exam. - Non-bleeding external hemorrhoids. - Diverticulosis in the sigmoid colon, in the descending colon and in the transverse colon. - One less than 5 mm polyp in the cecum, removed with a cold biopsy forceps. Resected and retrieved. - One less than 5 mm polyp in the sigmoid colon, removed with a hot snare. Resected and retrieved. - The examination was otherwise normal on direct and retroflexion views. Recommendation: - Discharge patient to home. - Resume previous diet. - Continue present medications. - Await pathology results. - Repeat colonoscopy in 5 years for surveillance based on pathology results. - depending on overall health at time of possible repeat Procedure Code(s): --- Professional --- 46073, PT, Colonoscopy, flexible; with removal of tumor(s), polyp(s), or other lesion(s) by snare technique 30710, 59, Colonoscopy, flexible; with biopsy, single or multiple Diagnosis Code(s): --- Professional --- Z12.11, Encounter for screening for malignant neoplasm of colon K64.4, Residual hemorrhoidal skin tags D12.0, Benign neoplasm of cecum D12.5, Benign neoplasm of sigmoid colon K57.30, Diverticulosis of large intestine without perforation or abscess without bleeding CPT copyright 2021 [employer]. All rights reserved. The codes documented in this report are preliminary and upon welder first class review may be revised to meet current compliance requirements. MD Leonie Linder MD 08/09/2025 8:13:05 AM This report has been signed electronically. Number of Addenda: 0 Note Initiated On: 08/09/2025 7:29 AM
--- NOTE | 2025-08-09 08:13 | OP.PROVAT_ITS ---
08/09/2025 Simone Marino MD [address] [id number] Re : Colonoscopy procedure for Preeti Saavedra Dear Dr. Marino This procedure was performed on Saturday, August 09, 2025. My impressions and recommendations are as follows: Impressions : - Hemorrhoids found on perianal exam. - Non-bleeding external hemorrhoids. - Diverticulosis in the sigmoid colon, in the descending colon and in the transverse colon. - One less than 5 mm polyp in the cecum, removed with a cold biopsy forceps. Resected and retrieved. - One less than 5 mm polyp in the sigmoid colon, removed with a hot snare. Resected and retrieved. - The examination was otherwise normal on direct and retroflexion views. Recommendations : - Discharge patient to home. - Resume previous diet. - Continue present medications. - Await pathology results. - Repeat colonoscopy in 5 years for surveillance based on pathology results. - depending on overall health at time of possible repeat My findings are described in the full procedure note, which is enclosed. If I can be of further assistance, please feel free to contact me at Doctor phone number(s): , Work: . Sincerely, MD Leonie Linder MD 08/09/2025 8:13:05 AM This report has been signed electronically.
--- NOTE | 2025-08-09 08:18 | PCM.POST.ANE ---
Anesthesia: Postop Eval I Current Vital Signs Temperature: 97.2 F Pulse Rate: 74 Blood Pressure: 113/73 Respiratory Rate: 16 Pulse Ox: 100 Oxygen Delivery Method: Room Air Assessment Airway patent: Yes Spontaneous unlabored respirations: Yes Mental status: Awake and Calm nausea: No Vomiting: No Anesthesia Complication: No Fluid Hydration Crystalloid volume administer (ml): 900 Total IV fluid infused: 900 Progress Note Anesthesia document: Postop Eval 1 completed: Yes
--- NOTE | 2025-08-09 10:38 | PCM.POSTANE2 ---
Anesthesia Postop Eval I Sum Postop Eval Completion status Anesthesia document: Postop Eval 1 completed: Yes Anesthesia Postop Eval I Summary Anesthesia Postop Eval I Summary: Anesthesia Postop Eval I: Assessment Summary Airway patent Yes 08/09/25 08:19 [email or web address] Spontaneous unlabored Yes 08/09/25 08:19 [email or web address] respirations Mental status Awake,Calm 08/09/25 08:19 [email or web address] nausea No 08/09/25 08:19 [email or web address] Vomiting No 08/09/25 08:19 [email or web address] Anesthesia Postop Eval I: Fluid Summary Crystalloid volume administer 900 08/09/25 08:19 [email or web address] (ml) Colloids volume administered ( ml) Blood Product volume administered (ml) Total IV fluid infused 900 08/09/25 08:19 [email or web address] Anesthesia Postop Eval I: Summary Notes Anesthesia Complication No 08/09/25 08:19 [email or web address] Anesthesia Complication Comment: Post-operative progress note Anesthesia: Postop Eval II Evaluation Mental status: Awake Pain Level: 0 nausea: No Vomiting: No Complications Anesthesia Complication: No
== END 2025-08-09 09:10 | disposition home or self-care (01) ==
LOC: EN 06:08 → AC 06:09
PROVIDERS: PCP Family Medicine; Referring Provider Family Medicine; Visit Provider Surgery
DX: Z12.11 Encounter for screening for malignant neoplasm of colon (principal); K63.5 Polyp of colon; K57.30 Diverticulosis of large intestine without perforation or abscess without bleeding; K64.4 Residual hemorrhoidal skin tags; I10 Essential (primary) hypertension; Z79.82 Long term (current) use of aspirin; Z79.890 Hormone replacement therapy; E03.9 Hypothyroidism, unspecified; Z79.899 Other long term (current) drug therapy; F17.210 Nicotine dependence, cigarettes, uncomplicated
CPT/HCPCS: 45380; 45385; 88305; J2405